=== PATIENT | male | born 1965 | race Caucasian/White ===

== ENCOUNTER 2019-06-27 10:02 | Emergency (ER) | payer OTHER ==
[2019-06-27 10:22] VITALS: BMI 39.1
[2019-06-27] MEDS ORDERED: ALBUTEROL SO4 2.5/IPRATROPIUM 0.5 INH SOL 3 ML VIAL.NEB. NEB ONE ×2 (10:39→10:40)
[2019-06-27] MEDS ORDERED: ACETAMINOPHEN 500 MG TABLET (FP) PO ONE (10:39)
[2019-06-27] MEDS ORDERED: ACETAMINOPHEN 500 MG TABLET (FP) ONE (10:40)
[2019-06-27] MEDS ORDERED: guaiFENesin 200 MG/10 ML 10 ML UNIT-DOSE CUPS PO ONE (10:42)
[2019-06-27] MEDS ORDERED: guaiFENesin/D-METHORPHAN HB 10 ML UNIT-DOSE CUPS ONE (10:56)
[2019-06-27] MEDS ORDERED: guaiFENesin/D-METHORPHAN HB 10 ML UNIT-DOSE CUPS PO ONE (11:07)
--- NOTE | 2019-06-27 11:10 | PDOC ---
History of Present Illness - General Chief Complaint: Respiratory Stated Complaint: COUGH,CONGESTION,CHEST PAIN Time Seen by Provider: 06/27/19 10:09 - History of Present Illness Initial Comments: 06/27/19 11:05 53yo male with no pmhx presents with his for eval of cough, congestion, fever x 2 days. States his symptoms started 2 days ago- rhinorrhea, sore throat , coughing- productive green sputum. Pt states he was taking robitussin yesterday and tylenol yesterday which made him feel better. States overnight he was awake and coughing all night-states cp when he coughs and bringing up green phlegm. Has not taken any meds since yesterday at 4pm. Pt states son with similar symptoms at home which lasted 4 days but he is improving. Pt did not get the flu vaccine. Pt denies abd pain, n/v/d. No dysuria. No other complaints. Pmhx: denies Pxhx: appy all: nkda Past History - Past Medical History Allergies/Adverse Reactions: Allergies Allergy/AdvReac Type Severity Reaction Status Date / Time No Known Allergies Allergy Verified 06/27/19 10:12 Home Medications: Ambulatory Orders Albuterol Sulfate Inhaler - [Ventolin HFA Inhaler -] 1 - 2 inh PO QID PRN #1 inhaler 06/27/19 Guaifenesin 200 mg PO Q4H PRN #300 ml 06/27/19 Inhaler, Assist Devices [Space Chamber Plus] 1 each MC Q4H PRN #1 spacer COPD: No - Surgical History Appendectomy: Yes - Psycho Social/Smoking Cessation Hx Smoking Status: No Smoking History: Never smoked Number of Cigarettes Smoked Daily: 0 Hx Alcohol Use: No Drug/Substance Use Hx: No Review of Systems - Review of Systems Able to Perform ROS?: Yes Is the patient limited [place]ib[place]ian proficient: No Constitutional: Yes: Fever. No: Chills HEENTM: Yes: Nose Congestion, Throat Pain Respiratory: Yes: Cough, Productive cough. No: Wheezing Cardiac (ROS): Yes: Chest Pain (only with the cough) ABD/GI: No: Diarrhea, Nausea, Vomiting, Abdominal cramping : No: Burning Musculoskeletal: No: Back Pain, Neck Pain Integumentary: No: Rash Neurological: No: Headache, Numbness, Paresthesia, Tingling, Tremors, Weakness All Other Systems: Reviewed and Negative *Physical Exam - Vital Signs Last Vital Signs Temp Pulse Resp BP Pulse Ox 100 F H 83 19 111/77 97 06/27/19 10:09 06/27/19 10:09 06/27/19 10:09 06/27/19 10:09 06/27/19 10:09 - Physical Exam General Appearance: Yes: Nourished, Appropriately Dressed. No: Apparent Distress HEENT: positive: EOMI, GIOVANI, TMs Normal, Nasal Congestion, Other (post nasal gtt ) Neck: positive: Supple. negative: Tender, Rigidity Respiratory/Chest: positive: Lungs Clear, Normal Breath Sounds. negative: Respiratory Distress, Rhonchi, Wheezing Cardiovascular: positive: Regular Rhythm, Regular Rate, S1, S2. negative: Edema Musculoskeletal: positive: Normal Inspection Extremity: positive: Normal Capillary Refill, Normal Range of Motion, Other ( ambulatory in the ER). negative: Calf Tenderness Integumentary: positive: Normal Color, Dry, Warm Neurologic: positive: Fully Oriented, Alert, Normal Mood/Affect, Normal Response Heart Score/ECG Review - ECG Intrepretation Comment:: 06/27/19 11:10 sinus at 80, nl axis, nl interval, no acute st/t wave findings, t wave flattening inferior leads only ED Treatment Course - RADIOLOGY Radiology Studies Ordered: Category Date Time Status CHEST PA & LAT [RAD] Stat Radiology 06/27/19 10:39 Ordered - Medications Given in the ED: ED Medications Discontinued Medications Generic Name Dose Route Start Last Admin Trade Name Freq PRN Reason Stop Dose Admin Acetaminophen 1,000 mg 06/27/19 10:39 06/27/19 10:53 Tylenol - PO 06/27/19 10:40 1,000 mg ONCE ONE Administration Albuterol/Ipratropium 1 amp 06/27/19 10:39 06/27/19 10:53 Duoneb - NEB 06/27/19 10:40 1 amp ONCE ONE Administration Medical Decision Making - Medical Decision Making 06/27/19 11:09 a/p: 53yo male with sore throat, nasal congestion, cough-productive green sputum -son with similar symptoms -last po meds were yesterday -tolerating po -suspect URI vs flu -will send for xray to r/o pna, though low suspicion given clear lungs -will give tylneol, robitussin, albuterol -will flu swab -pt is nontoxic in appearance -will monitor and reassess 06/27/19 11:27 cxr clear 06/27/19 12:13 pt feeling better repeat lung exam cta discussed meds at home discussed tylenol and motrin flu neg discussed po intake and need to stay well hydrated discussed all reasons to return to the ED and need for follow up with PMD answered all questions stable for dc to home Discharge - Discharge Information Problems reviewed: Yes Clinical Impression/Diagnosis: URI (upper respiratory infection) Condition: Stable Disposition: HOME - Admission No - Additional Discharge Information Prescriptions: Albuterol Sulfate Inhaler - [Ventolin HFA Inhaler -] 1 - 2 inh PO QID PRN #1 inhaler PRN Reason: Cough Guaifenesin 200 mg PO Q4H PRN #300 ml PRN Reason: Cough Inhaler, Assist Devices [Space Chamber Plus] 1 each MC Q4H PRN #1 spacer PRN Reason: Cough - Follow up/Referral Referrals: Osmar Rodriguez MD [Staff Physician] - - Patient Discharge Instructions Patient Printed Discharge Instructions: DI for Viral Upper Respiratory Infection -- Adult Additional Instructions: Please take all medications as prescribed. Please take tylenol or motrin as needed for the fever. Please make an appointment to see your PMD on saturday as discussed. Please drink plenty of fluids. Please return to the ED with any further concerns or complaints. - Post Discharge Activity
[2019-06-27 12:21] VITALS: BP 110/74; PULSE 86; TEMP 99.1
--- NOTE | 2019-06-28 15:16 | EKG ---
Test Reason : Blood Pressure : / mmHG Vent. Rate : 080 BPM Atrial Rate : 080 BPM P-R Int : 122 ms QRS Dur : 088 ms QT Int : 354 ms P-R-T Axes : 000 042 007 degrees QTc Int : 408 ms NORMAL SINUS RHYTHM NONSPECIFIC T WAVE ABNORMALITY ABNORMAL ECG NO PREVIOUS ECGS AVAILABLE Confirmed by MD SOPHIA, ARDEN ([id number]) on 06/28/2019 3:15:31 PM Referred By: RAMA WILSON Confirmed By:ARDEN CORTES MD
== END 2019-06-27 12:25 | disposition home or self-care (01) ==
LOC: FER 10:02
PROC: 3E0F7GC Introduction of Other Therapeutic Substance into Respiratory Tract, Via Natural or Artificial Opening (ICD-10-PCS; principal; 2019-06-27)
DX: J06.9 Acute upper respiratory infection, unspecified (principal)
CPT/HCPCS: 71046-TC-FY; 87804; 93005; 99282-25

== ENCOUNTER 2019-08-09 15:48 | Inpatient (IN) | payer SELFPAY ==
[2019-08-09] MEDS ORDERED: SODIUM CHLORIDE 1,000 ML IV STA ×2 (15:50→18:22)
[2019-08-09] MEDS ORDERED: ONDANSETRON 4 MG/2 ML VIAL IVPB ONE (15:51)
[2019-08-09] MEDS ORDERED: ONDANSETRON 4 MG/2 ML VIAL ONE (15:57)
[2019-08-09] MEDS ORDERED: morphine CARPU-JECT 4 MG/1 ML DISP.SYRIN IVPUSH ONE ×2 (16:29→18:23)
[2019-08-09] MEDS ORDERED: PANTOPRAZOLE SODIUM 40 MG in SODIUM CHLORIDE 100 ML IVPB ONE (16:29)
[2019-08-09 16:30] LABS: ALBUMIN 4.2 g/dl (3.4-5.0); BASO % 0.6 % (0-2.0); BILIRUBIN,TOTAL 3.5 mg/dl (0.2-1); CALCIUM 9.5 mg/dl (8.5-10); EOS % 1.4 % (0-4.5); HEMATOCRIT 47.4 % (35.4-49); LYMPH % 14.5 % (8-40); MCH 29.1 pg (25.7-33.7); MCHC 33.7 g/dl (32.0-35.9); MEAN CELL VOLUME 86.4 fl (80-96); MONO % 5.1 % (3.8-10.2); NEUT % 78.4 % (42.8-82.8); PLATELET COUNT 293 K/MM3 (134-434); POTASSIUM 3.9 mmol/L (3.5-5.1); RBC 5.49 M/mm3 (4.00-5.60); RDW 12.5 % (11.9-15.9); TOT PROT 7.7 g/dl (6.4-8.2)
[2019-08-09] MEDS ORDERED: morphine SULFATE 4 MG/ML VIAL ONE ×2 (16:34→18:32)
[2019-08-09] MEDS ORDERED: PANTOPRAZOLE SODIUM 40 MG VIAL ONE (16:34)
--- NOTE | 2019-08-09 18:27 | PDOC ---
Documentation entered by Maribell Becerril SCRIBE, acting as scribe for Uday Felipe MD. Uday Mabry MD: This documentation has been prepared by the Jone hyatt Nirvannie, SCRIBE, under my direction and personally reviewed by me in its entirety. I confirm that the documentation accurately reflects all work, treatment, procedures, and medical decision making performed by me. History of Present Illness - General Chief Complaint: Nausea Stated Complaint: ABDOMINAL PAIN Time Seen by Provider: 08/09/19 15:49 History Source: Patient Exam Limitations: No Limitations - History of Present Illness Initial Comments: 08/09/19 16:46 The patient is a 53 year old male, with no significant past medical history, who presents to the emergency department with 2 days of epigastric abdominal pain and nausea. As per patient, shortly after eating a large meal yesterday. Patient notes the pain to worsen with touch and endorses several episodes of retching without any vomiting. His last bowel movement was yesterday and normal in nature. He denies any recent fevers, chills, headache or dizziness. He denies any recent diarrhea or constipation. He denies any recent chest pain or shortness of breath. He denies any recent dysuria, frequency, urgency or hematuria. Allergies: NKDA Past surgical history: Appendectomy Social History: Nonsmoker. Denies excessive EtOH use or recreational drug use. Familial History: Maternal: DM and GERD Primary Care Physician: Dr. Schmid Past History - Past Medical History Allergies/Adverse Reactions: Allergies Allergy/AdvReac Type Severity Reaction Status Date / Time No Known Allergies Allergy Verified 08/09/19 15:53 Home Medications: Ambulatory Orders Bismuth Subsalicylate [Pepto-Bismol -] 524 mg PO ONCE 08/09/19 COPD: No - Surgical History Appendectomy: Yes - Psycho Social/Smoking Cessation Hx Smoking Status: No Smoking History: Never smoked Number of Cigarettes Smoked Daily: 0 Hx Alcohol Use: No Drug/Substance Use Hx: No Review of Systems - Review of Systems Able to Perform ROS?: Yes Comments:: 08/09/19 16:46 CONSTITUTIONAL: Absent: fever, no chills, no fatigue EYES: Absent: visual changes ENT: Absent: ear pain, no sore throat CARDIOVASCULAR: Absent: chest pain, no palpitations RESPIRATORY: Absent: cough, no SOB GI: Present: Abdominal pain, nausea. Absent: no vomiting, no constipation, no diarrhea GENITOURINARY: Absent: dysuria, no frequency, no hematuria MUSKULOSKELETAL: Absent: back pain, no arthralgia, no myalgia SKIN: Absent: rash NEURO: Absent: headache All Other Systems: Reviewed and Negative *Physical Exam - Vital Signs Last Vital Signs Temp Pulse Resp BP Pulse Ox 98.0 F 106 H 22 H 134/80 100 08/09/19 15:49 08/09/19 15:49 08/09/19 15:49 08/09/19 15:49 08/09/19 15:49 - Physical Exam 08/09/19 17:32 GENERAL: Well developed, well nourished. Awake and alert. +Moderate distress secondary to epigastric pain and nausea. HEENT: Normocephalic, atraumatic. PERRLA, EOMI. No conjunctival pallor. Sclera are non- icteric. Moist mucous membranes. Oropharynx is clear. NECK: Supple. Full ROM. No JVD. Carotid pulses 2+ and symmetric, without bruits. No thyromegaly. No lymphadenopathy. CARDIOVASCULAR: Regular rate and rhythm. No murmurs, rubs, or gallops. Distal pulses are 2+ and symmetric. PULMONARY: No evidence of respiratory distress. Lungs clear to auscultation bilaterally. No wheezing, rales or rhonchi. ABDOMINAL: +Protuberant. Soft. Non-distended. Mild to moderate epigastric tenderness to deep palpation. No rebound or guarding. No organomegaly. Normoactive bowel sounds. No mid-abominal, lower, or rib tenderness. Negative Cage's Sign. : No hernias. No testicular masses or swelling. MUSCULOSKELETAL Normal range of motion at all joints. No bony deformities or tenderness. No CVA tenderness. EXTREMITIES: No cyanosis. No clubbing. No edema. No calf tenderness. SKIN: Warm and dry. Normal capillary refill. No rashes. No jaundice. NEUROLOGICAL: Alert, awake, appropriate. Cranial nerves 2-12 intact. No deficits to light touch and temperature in face, upper extremities and lower extremities. No motor deficits in the in face, upper extremities and lower extremities. Normoreflexic in the upper and lower extremities. Normal speech. Toes are down- going bilaterally. PSYCHIATRIC: Cooperative. Good eye contact. Appropriate mood and affect. ED Treatment Course - LABORATORY CBC & Chemistry Diagram: 08/09/19 16:05 08/09/19 16:05 - ADDITIONAL ORDERS Additional order review: Laboratory Results 08/09/19 08/09/19 16:05 16:05 Sodium 139 Potassium 3.9 Chloride 103 Carbon Dioxide 24 Anion Gap 12 BUN 12.0 Creatinine 1.0 Est GFR (CKD-EPI)AfAm 100.55 Est GFR (CKD-EPI)NonAf 86.76 Random Glucose 161 H Calcium 9.5 Total Bilirubin 3.5 H AST 570 H ALT 660 H Alkaline Phosphatase 118 H Total Protein 7.7 Albumin 4.2 Lipase > 36583 H 08/09/19 16:05 RBC 5.49 MCV 86.4 MCHC 33.7 RDW 12.5 MPV 9.0 Neutrophils % 78.4 Lymphocytes % 14.5 Monocytes % 5.1 Eosinophils % 1.4 Basophils % 0.6 - RADIOLOGY Radiology Studies Ordered: Category Date Time Status ABDOMEN FLAT & UPRIGHT [RAD] Stat Radiology 08/09/19 16:51 Completed ABDOMEN US -LIMITED [US] Stat Ultrasound 08/09/19 17:20 Ordered - Medications Given in the ED: ED Medications Discontinued Medications Generic Name Dose Route Start Last Admin Trade Name Freq PRN Reason Stop Dose Admin Sodium Chloride 1,000 mls @ 1,000 mls/hr 08/09/19 15:50 08/09/19 16:13 Normal Saline - IV 08/09/19 16:49 1,000 mls/hr ASDIR STA Administration Pantoprazole Sodium 40 mg/ 100 mls @ 200 mls/hr 08/09/19 16:29 08/09/19 16:45 Sodium Chloride IVPB 08/09/19 16:58 200 mls/hr ONCE ONE Administration Morphine Sulfate 4 mg 08/09/19 16:29 08/09/19 16:40 Morphine Injection - IVPUSH 08/09/19 16:30 4 mg ONCE ONE Administration Ondansetron HCl 4 mg 08/09/19 15:51 08/09/19 16:14 Zofran Injection IVPB 08/09/19 15:52 4 mg ONCE ONE Administration Medical Decision Making - Medical Decision Making 08/09/19 18:14 White blood count 11.0. Blood sugar 161. Bilirubin 3.5. AST and ALT 570 and 660 respectively alkaline phosphatase 118. Lipase greater than 30,000 Attempt to pass NG tube was not tolerated by the patient. He refused to cooperate, unwilling to allow the tube to remain in place Ultrasound is pending. 08/09/19 18:25 Diagnosis: Acute pancreatitis, etiology uncertain Admit to [facility] [place], Christina Neri contacted, arranged admission to Patient clinically and hemodynamically stable. Receiving intravenous fluids. N.p.o. Pain controlled with morphine. Awaiting ambulance transport. Discharge - Discharge Information Problems reviewed: Yes Clinical Impression/Diagnosis: Acute pancreatitis Qualifiers: Pancreatitis type: unspecified pancreatitis type Acute pancreatitis complication: unspecified Qualified Code(s): K85.90 - Acute pancreatitis without necrosis or infection, unspecified Condition: Good - Admission Yes - Follow up/Referral Referrals: Osmar Rodriguez MD [Primary Care Provider] - - Patient Discharge Instructions - Post Discharge Activity
[2019-08-09] MEDS ORDERED: BISMUTH SUBSALICYLATE 524 MG/30 ML UD PO ONE (22:30)
[2019-08-09] MEDS: morphine SULFATE 4 MG/ML VIAL IVPUSH PRN (22:43)
[2019-08-09] MEDS: SODIUM CHLORIDE 1,000 ML IV SCH (22:45)
--- NOTE | 2019-08-09 22:51 | HP ---
CHIEF COMPLAINT: Epigastric pain with nausea PCP: Dr. Rodriguez HISTORY OF PRESENT ILLNESS: This is a 53 year old male with no significant PMH. He presented to the ER at [facility] with complaints of epigastric abdominal pain associated with nausea since yesterday. The pain began around 2-4PM a day before presenting to the ER. He had cereal for breakfast, and was eating fried chicken for lunch. Shortly afterwards, he experienced sudden onset epigastric pain associated with nausea. He attempted to force himself to vomit, but was only able to produce scant black liquid. The pain was constant, but intermittent in intensity, ranging between 7- 10/10 in intensity, sharp in quality, non- radiating, aggravated by eating as well as pepto-bismol use, and alleviated by sitting upright. He denies fevers, chills, SOB, cough, chest pain, palpitations, confusion, visual changes, vomiting, diarrhea, constipation, dysuria, or hematuria. He has never experienced pain like this before. He denies any recent illnesses, or sick contacts. His last visit to a hospital was the ER at [facility], when he was experiencing SOB. He was found to have a URTI, and received Tylenol, Albuterol, and Robitussin and was discharged. He has never had a colonoscopy. He had an appenedectomy for acute appendicitis several years ago. ER course was notable for: (1) Abdomen US: Gallstones, fatty liver, no cholecystitis, no GB distension, AXR showed no free air (2) WBC 11k, afebrile (3) AST/ALT 570/660 Lipase >30k Recent Travel: denies PAST MEDICAL HISTORY: See HPI PAST SURGICAL HISTORY: Appendectomy several years ago Social History: Smoking: denies Alcohol: denies Drugs: denies Allergies - No Known Allergies Allergy (Verified 08/09/19 15:53) HOME MEDICATIONS: Home Medications Medication Instructions Recorded Bismuth Subsalicylate 524 mg PO ONCE 08/09/19 [Pepto-Bismol -] REVIEW OF SYSTEMS CONSTITUTIONAL: Absent: fever, chills, diaphoresis, generalized weakness, malaise, loss of appetite, weight change HEENT: Absent: rhinorrhea, nasal congestion, throat pain, throat swelling, difficulty swallowing, mouth swelling, ear pain, eye pain, visual changes CARDIOVASCULAR: Absent: chest pain, syncope, palpitations, irregular heart rate, lightheadedness , peripheral edema RESPIRATORY: Absent: cough, shortness of breath, dyspnea with exertion, orthopnea, wheezing, stridor, hemoptysis GASTROINTESTINAL: abdominal pain, nausea Absent: abdominal pain, abdominal distension, nausea, vomiting, diarrhea, constipation, melena, hematochezia GENITOURINARY: Absent: dysuria, frequency, urgency, hesitancy, hematuria, flank pain, genital pain MUSCULOSKELETAL: Absent: myalgia, arthralgia, joint swelling, back pain, neck pain SKIN: Absent: rash, itching, pallor HEMATOLOGIC/IMMUNOLOGIC: Absent: easy bleeding, easy bruising, lymphadenopathy, frequent infections ENDOCRINE: Absent: unexplained weight gain, unexplained weight loss, heat intolerance, cold intolerance NEUROLOGIC: Absent: headache, focal weakness or paresthesias, dizziness, unsteady gait, seizure, mental status changes, bladder or bowel incontinence PSYCHIATRIC: Absent: anxiety, depression, suicidal or homicidal ideation, hallucinations. PHYSICAL EXAMINATION Vital Signs - 24 hr 08/09/19 08/09/19 08/09/19 15:49 18:15 19:42 Temperature 98.0 F 98.1 F 98.1 F Pulse Rate 106 H 68 Pulse Rate [ 66 Left Radial] Respiratory 22 H 18 18 Rate Blood Pressure 134/80 112/71 Blood Pressure 110/70 [Right Arm] O2 Sat by Pulse 100 96 Oximetry (%) 08/09/19 08/09/19 20:12 21:00 Temperature 98.1 F 98.2 F Pulse Rate 68 71 Pulse Rate [ Left Radial] Respiratory 18 20 Rate Blood Pressure 112/71 140/82 Blood Pressure [Right Arm] O2 Sat by Pulse 96 Oximetry (%) GENERAL: Awake, alert, and fully oriented, in no acute distress. HEAD: Normal with no signs of trauma. EYES: Pupils equal, round and reactive to light, extraocular movements intact, sclera anicteric, conjunctiva clear. No lid lag. EARS, NOSE, THROAT: Ears normal, nares patent, oropharynx clear without exudates. Moist mucous membranes. NECK: Normal range of motion, supple without lymphadenopathy, JVD, or masses. LUNGS: Breath sounds equal, clear to auscultation bilaterally. No wheezes, and no crackles. No accessory muscle use. HEART: Regular rate and rhythm, normal S1 and S2 without murmur, rub or gallop. ABDOMEN: Scar from appendectomy in Rt lower quadrant, no erythema or tenderness at site, epigastric tenderness, no rebound tenderness MUSCULOSKELETAL: Normal range of motion at all joints. No bony deformities or tenderness. No CVA tenderness. UPPER EXTREMITIES: 2+ pulses, warm, well-perfused. No cyanosis. No clubbing. No peripheral edema. LOWER EXTREMITIES: 2+ pulses, warm, well-perfused. No calf tenderness. No peripheral edema. NEUROLOGICAL: Cranial nerves II-XII intact. Normal speech PSYCHIATRIC: Cooperative. Good eye contact. Appropriate mood and affect. SKIN: Warm, dry, normal turgor, no rashes or lesions noted, normal capillary refill. Laboratory Results - last 24 hr 08/09/19 08/09/19 08/09/19 16:05 16:05 16:05 WBC 11.0 H RBC 5.49 Hgb 16.0 Hct 47.4 MCV 86.4 MCH 29.1 MCHC 33.7 RDW 12.5 Plt Count 293 MPV 9.0 Absolute Neuts (auto) 8.5 Neutrophils % 78.4 Lymphocytes % 14.5 Monocytes % 5.1 Eosinophils % 1.4 Basophils % 0.6 Sodium 139 Potassium 3.9 Chloride 103 Carbon Dioxide 24 Anion Gap 12 BUN 12.0 Creatinine 1.0 Est GFR (CKD-EPI)AfAm 100.55 Est GFR (CKD-EPI)NonAf 86.76 Random Glucose 161 H Calcium 9.5 Total Bilirubin 3.5 H AST 570 H ALT 660 H Alkaline Phosphatase 118 H Total Protein 7.7 Albumin 4.2 Lipase > 70344 H Urine Color Urine Appearance Urine pH Urine Protein Urine Glucose (UA) Urine Ketones Urine Blood Urine Nitrite Urine Bilirubin Urine Urobilinogen Ur Leukocyte Esterase Urine RBC Urine WBC Urine Bacteria 08/09/19 20:00 WBC RBC Hgb Hct MCV MCH MCHC RDW Plt Count MPV Absolute Neuts (auto) Neutrophils % Lymphocytes % Monocytes % Eosinophils % Basophils % Sodium Potassium Chloride Carbon Dioxide Anion Gap BUN Creatinine Est GFR (CKD-EPI)AfAm Est GFR (CKD-EPI)NonAf Random Glucose Calcium Total Bilirubin AST ALT Alkaline Phosphatase Total Protein Albumin Lipase Urine Color Yellow Urine Appearance Clear Urine pH 5.0 Urine Protein Negative Urine Glucose (UA) Negative Urine Ketones Trace Urine Blood Trace-intact Urine Nitrite Negative Urine Bilirubin 2+ H Urine Urobilinogen 1.0 Ur Leukocyte Esterase Negative Urine RBC 2-5 Urine WBC 0-2 Urine Bacteria Few ASSESSMENT/PLAN: 53 year old male with no significant PMH. He presented to the ER at [place] with complaints of epigastric abdominal pain associated with nausea since yesterday. Found to have gallstones on US and Lipase of >30k, admitted for management of acute pancreatitis #Acute pancreatitis - Meets 2/3 criteria for acute pancreatitis: 1)epigastric pain (present), 2) Lipase >3x normal limit (present), 3)Direct radiographic evidence of pancreatitis - Lipase >30k, repeat ordered for AM - Abdomen US: Gallstones, fatty liver, no cholecystitis, no GB distension, AXR showed no free air - No signs of organ failure or systemic complications - Likely 2/2 cholelithiasis, RUQ showed gallstones without GB inflammation or distension - If condition worsens, would order CT AP to check for presence of pancreatic/ extrapancreatic necrosis and/or local complications - TG level,EtOH level ordered to r/o other possible causes of pancreatitis - Will keep NPO and hydrate aggressively (N/S @200) - IV Morphine and Zofran PRN ordered for symptomatic management - GI consulted and MRCP ordered for management of cholelithiasis - Cholecystectomy should be performed after resolution of pancreatitis, no cholecystectomy after pancreatitis is associated with a 25-30% percent risk of recurrent acute pancreatitis, cholecystitis, or cholangitis within 6-18 weeks #Transaminitis - AST 570, ALT 660 - Likely 2/2 to cholelithiasis, T Bili 3.5, ALP 118 - Fatty liver on US - Tylenol level ordered - Hep A,B,C tests ordered #Leukocytosis - WBC 11k, likely reactive 2/2 pancreatitis - No abx currently indicated - No other signs of sepsis, will continue to monitor #FEN - L/R @ 200 started - NPO #DVT - Heparin 5000 SQ TID Visit type - Emergency Visit Emergency Visit: Yes ED Registration Date: 08/09/19 Care time: The patient presented to the Emergency Department on the above date and was hospitalized for further evaluation of their emergent condition. - New Patient This patient is new to me today: Yes Date on this admission: 08/11/19 - Critical Care Critical Care patient: No ATTENDING PHYSICIAN STATEMENT I saw and evaluated the patient. I reviewed the resident's note and discussed the case with the resident. I agree with the resident's findings and plan as documented. SUBJECTIVE: OBJECTIVE: ASSESSMENT AND PLAN:
[2019-08-09 23:21] VITALS: BMI 39.2
--- NOTE | 2019-08-10 01:08 | PN ---
Teaching Attending Note Name of Resident: Nicolas Rahman ATTENDING PHYSICIAN STATEMENT I saw and evaluated the patient. I reviewed the resident's note and discussed the case with the resident. I agree with the resident's findings and plan as documented. SUBJECTIVE: 53-year-old male previously healthy, not taking any medications at home complained of 1 day of severe epigastric pain which started after eating some fried chicken, associated with several episodes of nonbloody, nonbilious vomiting. Patient is transferred from [facility] to [place] for management of acute pancreatitis. OBJECTIVE: Last Vital Signs Temp Pulse Resp BP Pulse Ox 98.2 F 71 20 138/76 96 08/09/19 21:00 08/09/19 22:35 08/09/19 22:35 08/09/19 22:35 08/09/19 21:00 GENERAL: Well developed, Morbidly obese, nontoxic-appearing, not in acute distress HEENT: Normocephalic, atraumatic. PERRLA, EOMI. No conjunctival pallor. Sclera are non- icteric. Moist mucous membranes. Oropharynx is clear. NECK: Supple. Full ROM. No JVD. Carotid pulses 2+ and symmetric, without bruits. No thyromegaly. No lymphadenopathy. CARDIOVASCULAR: Regular rate and rhythm. No murmurs, rubs, or gallops. Distal pulses are 2+ and symmetric. PULMONARY: No evidence of respiratory distress. Lungs clear to auscultation bilaterally. No wheezing, rales or rhonchi. ABDOMINAL: Soft. Non-tender. Non-distended. No rebound or guarding. No organomegaly. Normoactive bowel sounds. MUSCULOSKELETAL Normal range of motion at all joints. No bony deformities or tenderness. No CVA tenderness. EXTREMITIES: No cyanosis. No clubbing. No edema. No calf tenderness. SKIN: Warm and dry. Normal capillary refill. No rashes. No jaundice. NEUROLOGICAL: Alert, awake, appropriate. PSYCHIATRIC: Cooperative. Good eye contact. Appropriate mood and affect. Abnormal Lab Results 08/09/19 08/09/19 08/09/19 16:05 16:05 16:05 WBC 11.0 H Random Glucose 161 H Total Bilirubin 3.5 H AST 570 H ALT 660 H Alkaline Phosphatase 118 H Lipase > 98538 H Urine Bilirubin 08/09/19 20:00 WBC Random Glucose Total Bilirubin AST ALT Alkaline Phosphatase Lipase Urine Bilirubin 2+ H Imaging studies reviewed Ultrasound of abdomen reviewed. [id number] cm with parenchymal heterogenicity and increased density consistent with hepatic steatosis, gallbladder shows small mobile gallstones with negative sonographic Cage sign. Common bile duct dimension 5.6 mm. Normal appearance of portal vein. No signs of cholecystitis sonographically. ASSESSMENT AND PLAN: 53-year-old male, morbidly obese with acute pancreatitis, high lipase likely secondary to gallstone pancreatitis. Suspect possible blockage of biliary ducts , ampulla of Vater. Should rule out pancreatitis secondary to triglyceridemia. No history of EtOH abuse or illicit or prescription drug use. History of abdominal pain after eating fatty food is consistent with diagnosis. Suspect leukocytosis is leukemoid reaction. Mixed transaminitis picture, may be secondary to cholestasis versus Atkins as patient is morbidly obese and has a fatty liver on liver ultrasound. Rule out other causes of hepatic injury such as viral hepatitis, EtOH, Tylenol. Admit to [facility] N[facility] Send lipid panel EtOH level Urine drug screen MRCP Aggressive IV fluid hydration Pain control with morphine IV pushes Zofran IV as needed if nausea or vomiting Hepatitis A, B, C serologies Tylenol level GI consult for ERCP DVT prophylaxis with heparin subcutaneously.
[2019-08-10] MEDS ORDERED: ONDANSETRON 4 MG/2 ML VIAL IVPUSH PRN (02:08)
[2019-08-10 02:18] LABS: TRIGLYCERIDES 48 mg/dL (0-150)
[2019-08-10] MEDS: morphine SULFATE 4 MG/ML VIAL IVPUSH PRN ×2 (02:47→07:46)
[2019-08-10] MEDS: SODIUM CHLORIDE 1,000 ML IV SCH (03:44)
[2019-08-10] MEDS ORDERED: LACTATED RINGERS SOLUTION 1,000 ML/1,000 ML INFUS.BAG IV SCH ×2 (04:30→11:20)
[2019-08-10] MEDS: HEPARIN NA (PORCINE) 5,000 UNITS/ML 1ML VIAL SQ SCH ×3 (06:12→22:04)
[2019-08-10 08:28] LABS: ALBUMIN 3.1 g/dl (3.4-5.0); BILIRUBIN,DIRECT 0.6 mg/dL (0.0-0.2); BILIRUBIN,TOTAL 1.2 mg/dL (0.2-1); TOT PROT 6.6 g/dl (6.4-8.2)
[2019-08-10 08:33] LABS: AMYLASE 490 U/L (25-115); LIPASE 4277 U/L (73-393)
--- NOTE | 2019-08-10 09:18 | EKG ---
Test Reason : Blood Pressure : / mmHG Vent. Rate : 077 BPM Atrial Rate : 077 BPM P-R Int : 136 ms QRS Dur : 082 ms QT Int : 352 ms P-R-T Axes : 006 002 023 degrees QTc Int : 398 ms POOR DATA QUALITY, INTERPRETATION MAY BE ADVERSELY AFFECTED NORMAL SINUS RHYTHM LOW VOLTAGE QRS POSSIBLE INFERIOR INFARCT , AGE UNDETERMINED ABNORMAL ECG WHEN COMPARED WITH ECG OF 27-JUN-2019 11:09, BORDERLINE CRITERIA FOR INFERIOR INFARCT ARE NOW PRESENT Confirmed by Pam Yanes ([id number]) on 08/10/2019 9:18:17 AM Referred By: Confirmed By:Pam Yanes
[2019-08-10 09:39] LABS: COCAINE, UR NEGATIVE ng/ml (CUTOFF=300); METHADONE, UR NEGATIVE ng/ml (CUTOFF=300); PHENCYCLIDINE,URINE NEGATIVE ng/ml (CUTOFF=25); URINE AMPHETAMINES NEGATIVE ng/ml (CUTOFF=500); URINE BARBITURATES NEGATIVE ng/ml (CUTOFF=200); URINE BENZODIAZEPINES NEGATIVE ng/ml (CUTOFF=200)
[2019-08-10 09:43] LABS: OPIATES, URI POSITIVE ng/ml (CUTOFF=300)
[2019-08-10] MEDS ORDERED: HYDROmorphone HCL CARPU-JECT 2 MG/1 ML DISP.SYRIN IVPUSH SCH (11:15)
[2019-08-10] MEDS: PANTOPRAZOLE SODIUM 40 MG VIAL IVPUSH SCH (11:49)
[2019-08-10] MEDS: HYDROmorphone HCl 2 MG/ML VIAL IVPUSH PRN ×2 (11:49→20:16)
[2019-08-10] MEDS: LACTATED RINGERS SOLUTION 1,000 ML/1,000 ML INFUS.BAG IV SCH (15:09)
--- NOTE | 2019-08-10 15:15 | CON.GI ---
Consult Consult Specialty:: GI Referred by:: Medicine Reason for Consultation:: gallstone pancreatitis - History of Present Illness Chief Complaint: epigastric pain History of Present Illness: 53M no PMHx presenting for acute onset epigastric pain with nausea, no emesis, after eating fried chicken on Saturday. Reports dark urine saturday that has resolved. No light colored stool or icterus. Came to ED, noted to have lipase > 30K, likely acute pancreatitis. Denies ETOH use. US with gallstones in gallbladder, CBD 5.6mm. LFTs already downtrending rapidly. GI asked to consult regarding possible need for ERCP. - History Source History Provided By: Patient Limitations to Obtaining History: No Limitations - Past Surgical History Past Surgical History: Yes: Appendectomy - Alcohol/Substance Use Hx Alcohol Use: No - Smoking History Smoking history: Never smoked Aproximately how many cigarettes per day: 0 Home Medications - Allergies Allergies/Adverse Reactions: Allergies Allergy/AdvReac Type Severity Reaction Status Date / Time No Known Allergies Allergy Verified 08/09/19 15:53 - Home Medications Home Medications: Ambulatory Orders Bismuth Subsalicylate [Pepto-Bismol -] 524 mg PO ONCE 08/09/19 Family Medical History Family History: Unremarkable Review of Systems - Review of Systems Constitutional: denies: Chills, Fever Eyes: denies: No Symptoms HENT: denies: No Symptoms Neck: denies: No Symptoms Cardiovascular: denies: No Symptoms Respiratory: denies: No Symptoms Gastrointestinal: reports: Abdominal Pain, Nausea. denies: Vomiting Integumentary: reports: No Symptoms Neurological: reports: No Symptoms Endocrine: reports: No Symptoms Hematology/Lymphatic: reports: No Symptoms Psychiatric: reports: No Symptoms Physical Exam-GI Vital Signs: Vital Signs Temperature 98 F 08/10/19 09:00 Pulse Rate 68 08/10/19 09:00 Respiratory Rate 18 08/10/19 09:00 Blood Pressure 122/68 08/10/19 09:00 O2 Sat by Pulse Oximetry (%) 96 08/09/19 21:00 Constitutional: Yes: Well Nourished, No Distress Eyes: Yes: Conjunctiva Clear HENT: Yes: Atraumatic, Normocephalic Cardiovascular: Yes: Regular Rate and Rhythm Respiratory: Yes: CTA Bilaterally ...Palpate: Yes: Soft, Tenderness, Epigastium ...Percussion: No: Dullness, Tympanitic Musculoskeletal: Yes: WNL Edema: No Neurological: Yes: Alert, Oriented Psychiatric: Yes: Alert, Oriented Labs: CBC, BMP 08/09/19 16:05 08/09/19 16:05 Hepatic Panel Total Bilirubin 1.2 mg/dL (0.2-1) H 08/10/19 06:00 Direct Bilirubin 0.6 mg/dL (0.0-0.2) H 08/10/19 06:00 AST 233 U/L (15-37) H 08/10/19 06:00 ALT 519 U/L (13-61) H 08/10/19 06:00 Alkaline Phosphatase 126 U/L (45-117) H 08/10/19 06:00 Albumin 3.1 g/dl (3.4-5.0) L 08/10/19 06:00 Imaging - Results Ultrasound: Report Reviewed Assessment/Plan Likely gallstone pancreatitis LFT improving - may have passed stone Can watch LFTs for now, if continue to downtrend rapidly, can likely defer MRCP - if plateau or begin to rise, then can consider obtaining Can likely give trial of clear liquids for now Surgical consult for cholecystectomy when acute pancreatitis resolves
--- NOTE | 2019-08-10 18:14 | PN ---
Physical Exam: SUBJECTIVE: Patient seen and examined. Pt reports mild- moderate pain. Tolerating pain well due to morphine. Asymptomatic and afebrile. Denies f/c/n/v/ d/sob/cp. OBJECTIVE: Vital Signs Period Temp Pulse Resp BP Sys/Kerr Pulse Ox Last 24 Hr 98 F-98.3 F 61-77 18-20 110-143/52-82 96-96 GENERAL: The patient is awake, alert, and fully oriented, in no acute distress. EYES: PERRL, extraocular movements intact, sclera anicteric, conjunctiva clear. No ptosis. ENT: Ears normal, nares patent, oropharynx clear without exudates, NECK: Trachea midline, full range of motion, supple. LUNGS: Breath sounds equal, clear to auscultation bilaterally, no wheezes, no crackles, HEART: Regular rate and rhythm, S1, S2 without murmur, rub or gallop. ABDOMEN: Soft, tender to deep palpation in the LUQ and epigastric region, nondistended, normoactive bowel sounds, no guarding, EXTREMITIES: 2+ pulses, warm, well-perfused, no edema. NEUROLOGICAL: Cranial nerves II through XII grossly intact. Normal speech, gait not observed. PSYCH: Normal mood, normal affect. SKIN: Warm, dry, normal turgor, no rashes or lesions noted Laboratory Results - last 24 hr 08/09/19 08/10/19 08/10/19 20:00 01:13 06:00 Total Bilirubin 1.2 H Direct Bilirubin 0.6 H AST 233 H ALT 519 H Alkaline Phosphatase 126 H Total Protein 6.6 Albumin 3.1 L Triglycerides 48 56 Cholesterol 128 Total LDL Cholesterol 71 HDL Cholesterol 42 Total Amylase Lipase Urine Color Yellow Urine Appearance Clear Urine pH 5.0 Urine Protein Negative Urine Glucose (UA) Negative Urine Ketones Trace Urine Blood Trace-intact Urine Nitrite Negative Urine Bilirubin 2+ H Urine Urobilinogen 1.0 Ur Leukocyte Esterase Negative Urine RBC 2-5 Urine WBC 0-2 Urine Bacteria Few Opiates Screen Methadone Screen Acetaminophen Barbiturate Screen Phencyclidine Screen Ur Amphetamines Screen MDMA (Ecstasy) Screen Benzodiazepines Screen Cocaine Screen U Marijuana (THC) Screen Alcohol, Quantitative < 3 08/10/19 08/10/19 08/10/19 06:00 06:00 06:30 Total Bilirubin Direct Bilirubin AST ALT Alkaline Phosphatase Total Protein Albumin Triglycerides Cholesterol Total LDL Cholesterol HDL Cholesterol Total Amylase 490 H Lipase 4277 H Urine Color Urine Appearance Urine pH Urine Protein Urine Glucose (UA) Urine Ketones Urine Blood Urine Nitrite Urine Bilirubin Urine Urobilinogen Ur Leukocyte Esterase Urine RBC Urine WBC Urine Bacteria Opiates Screen Positive A* Methadone Screen Negative Acetaminophen <2.0 Barbiturate Screen Negative Phencyclidine Screen Negative Ur Amphetamines Screen Negative MDMA (Ecstasy) Screen Negative Benzodiazepines Screen Negative Cocaine Screen Negative U Marijuana (THC) Screen Negative Alcohol, Quantitative Active Medications Generic Name Dose Route Start Last Admin Trade Name Freq PRN Reason Stop Dose Admin Heparin Sodium (Porcine) 5,000 unit 08/10/19 06:00 08/10/19 14:12 Heparin - SQ 5,000 unit TID DMITRY Administration Hydromorphone HCl 1 mg 08/10/19 11:32 08/10/19 11:49 Dilaudid Vial - IVPUSH 1 mg Q4H PRN Administration PAIN LEVEL 7 - 10 Lactated Ringer's 1,000 ml in 1,000 mls @ 100 mls/hr 08/10/19 14:54 08/10/19 15:09 Lactated Ringers Solution IV 100 mls/hr ASDIR DMITRY Administration Ondansetron HCl 4 mg 08/10/19 02:08 Zofran Injection IVPUSH Q4H PRN NAUSEA AND/OR VOMITING Pantoprazole Sodium 40 mg 08/10/19 11:30 08/10/19 11:49 Protonix Iv IVPUSH 40 mg DAILY DMITRY Administration ASSESSMENT/PLAN: 53 year old male with no PMH, presented to the ER at [place] with complaints of epigastric abdominal pain associated with nausea since yesterday w / gallstones on US and Lipase of >30k, admitted for management of acute pancreatitis #Acute pancreatitis Meets 2/3 criteria for acute pancreatitis: 1)epigastric pain (present), 2) Lipase >3x normal limit (present), 3)Direct radiographic evidence of pancreatitis Lipase trending down- 4277 Abdomen US: Gallstones, fatty liver, no cholecystitis, no GB distension, AXR showed no free air No signs of organ failure or systemic complications MRCP ordered- pending read NPO IVF at 100 IV dilaudid and Zofran PRN ordered for symptomatic management GI consulted IV protonix 40 daily #Transaminitis AST and ALT trending down Fatty liver on US Hep A,B,C tests ordered #Leukocytosis WBC 11k, likely reactive 2/2 pancreatitis No abx currently indicated No other signs of sepsis, will continue to monitor #FEN L/R @ 100 started Clear liquids after mrcp monitor lytes #DVT Heparin 5000 SQ TID Dispo: f/u MRCP, down trending lfts, stone likely passed, consider ERCP if gallstones present, f/u GI, likely need elective missy after resolution of AP Visit type - Emergency Visit Emergency Visit: Yes ED Registration Date: 08/09/19 Care time: The patient presented to the Emergency Department on the above date and was hospitalized for further evaluation of their emergent condition. - New Patient This patient is new to me today: Yes Date on this admission: 08/10/19 - Critical Care Critical Care patient: No - Discharge Referral Referred to [facility] No ATTENDING PHYSICIAN STATEMENT I saw and evaluated the patient. I reviewed the resident's note and discussed the case with the resident. I agree with the resident's findings and plan as documented. SUBJECTIVE: OBJECTIVE: ASSESSMENT AND PLAN:
--- NOTE | 2019-08-10 19:07 | PN ---
Teaching Attending Note Name of Resident: Gunner Up ATTENDING PHYSICIAN STATEMENT I saw and evaluated the patient. I reviewed the resident's note and discussed the case with the resident. I agree with the resident's findings and plan as documented. Seen and examined; please see resident note for further historical information. I personally verified all estevez historical information and exam findings. Personally interpreted all imaging and diagnostics and reviewed appropriate consults. I reviewed all labs and vital signs as per resident note and EMR as documented. I agree with the above assessment and plan unless supplemented by myself in the following. Patient seen by gastroenterology. States that we can defer the MRCP which was already obtained as of 8 AM so cannot be deferred. Likely passed a gallstone. Denies any alcohol, scorpion exposure, etc. etc. He will be monitored on the floor, can likely advance to clears tomorrow and continue to provide hydration with isotonic saline/LR. Monitor electrolytes. Providing pain control with Dilaudid. Not nauseous at the moment, will continue to monitor symptomatically. 10 item review of systems completed and is negative aside from as discussed in the subjective data in my own/the resident documentation. VS, labs, imaging reviewed NAD, AAO, resting comfortably in bed. RRR s1/2 no mgr Normal muscle tone, moves all 5 extremities with normal apparent strength Neck is supple, trachea midline, no lala LN Lungs CTAB with sym expansion Tender in the epigastric region with rebound ND +BS no lala organomegaly CN2-12 wnl; no FND NC AT EOMI PERRLA Normal mood, appropriate behavior, euthymic affect No skin breakdown or rashes noted Assessment and plan: Patient is a 53-year-old male presenting to the emergency room with abdominal pain likely secondary to gallstone pancreatitis. He is hemodynamically stable and afebrile. He is likely passed the gallstone. GI stated that MRCP can likely be deferred but was ready obtained. We will continue monitoring the patient on the floor. He is nontoxic-appearing Problems include: -Acute pancreatitis -Morbid obesity -Leukocytosis -Gallstones without associated cholecystitis Full code Providing improvement of symptoms, tolerating diet, can likely be discharged in 24 to 36 hours.
[2019-08-11] MEDS: HYDROmorphone HCl 2 MG/ML VIAL IVPUSH PRN (01:57)
[2019-08-11] MEDS: HEPARIN NA (PORCINE) 5,000 UNITS/ML 1ML VIAL SQ SCH ×3 (06:02→22:32)
[2019-08-11 06:57] LABS: BASO % 0.3 % (0-2.0); EOS % 1.5 % (0-4.5); HEMATOCRIT 38.5 % (35.4-49); HEMOGLOBIN 13.4 GM/dL (11.7-16.9); LYMPH % 18.8 % (8-40); MCH 29.7 pg (25.7-33.7); MCHC 34.7 g/dl (32.0-35.9); MEAN CELL VOLUME 85.6 fl (80-96); MEAN PLT VOLUME 9.3 fl (7.5-11.1); MONO % 7.1 % (3.8-10.2); NEUT % 72.3 % (42.8-82.8); PLATELET COUNT 233 K/MM3 (134-434); RDW 13.7 % (11.9-15.9); WHITE BLOOD COUNT 9.9 K/mm3 (4.0-10.0)
[2019-08-11 07:27] LABS: ALBUMIN 3.1 g/dl (3.4-5.0); BILIRUBIN,TOTAL 0.9 mg/dL (0.2-1); BLOOD UREA NITROGEN 13.3 mg/dL (7-18); CALCIUM 8.3 mg/dL (8.5-10.1); CREATININE 0.8 mg/dL (0.55-1.3); TOT PROT 6.5 g/dl (6.4-8.2)
[2019-08-11] MEDS: PANTOPRAZOLE SODIUM 40 MG VIAL IVPUSH SCH (10:36)
[2019-08-11] MEDS: LACTATED RINGERS SOLUTION 1,000 ML/1,000 ML INFUS.BAG IV SCH ×2 (16:28)
--- NOTE | 2019-08-11 17:10 | PN ---
Teaching Attending Note Name of Resident: Gunner Up ATTENDING PHYSICIAN STATEMENT I saw and evaluated the patient. I reviewed the resident's note and discussed the case with the resident. I agree with the resident's findings and plan as documented. SUBJECTIVE: Reports significant improvement in abdominal pain. No nausea/ vomiting. Tolerating clears. OBJECTIVE: Tmax 100.6, febrile. Hemodynamically Stable. Last Vital Signs Temp Pulse Resp BP Pulse Ox 97.9 F 80 18 139/70 97 08/11/19 14:00 08/11/19 14:00 08/11/19 08:00 08/11/19 14:00 08/11/19 09:00 HEENT - Atraumatic, Normocephalic. Heart - S1, S2 RRR Lungs - clear to auscultation Abdomen - High BMI. Mild epigastric tenderness. Extremities - no edema, no calf tenderness. Laboratory Results - last 24 hr 08/11/19 08/11/19 05:15 05:15 WBC 9.9 RBC 4.50 Hgb 13.4 Hct 38.5 MCV 85.6 MCH 29.7 MCHC 34.7 RDW 13.7 Plt Count 233 MPV 9.3 Absolute Neuts (auto) 7.1 Neutrophils % 72.3 Lymphocytes % 18.8 Monocytes % 7.1 Eosinophils % 1.5 Basophils % 0.3 Nucleated RBC % 0 Sodium 137 Potassium 4.0 Chloride 104 Carbon Dioxide 27 Anion Gap 6 L BUN 13.3 Creatinine 0.8 Est GFR (CKD-EPI)AfAm 119.88 Est GFR (CKD-EPI)NonAf 103.43 Random Glucose 107 H Calcium 8.3 L Total Bilirubin 0.9 AST 83 H ALT 334 H Alkaline Phosphatase 110 Total Protein 6.5 Albumin 3.1 L Lipase 1212 H Current Medications Generic Name Dose Route Start Last Admin Trade Name Freq PRN Reason Stop Dose Admin Heparin Sodium (Porcine) 5,000 unit 08/10/19 06:00 08/11/19 13:33 Heparin - SQ 5,000 unit TID DMITRY Administration Hydromorphone HCl 1 mg 08/10/19 11:32 08/11/19 01:57 Dilaudid Vial - IVPUSH 1 mg Q4H PRN Administration PAIN LEVEL 7 - 10 Lactated Ringer's 1,000 ml in 1,000 mls @ 100 mls/hr 08/10/19 14:54 08/11/19 16:28 Lactated Ringers Solution IV Not Given ASDIR DMITRY Ondansetron HCl 4 mg 08/10/19 02:08 08/11/19 02:06 Zofran Injection IVPUSH 4 mg Q4H PRN Administration NAUSEA AND/OR VOMITING Pantoprazole Sodium 40 mg 08/10/19 11:30 08/11/19 10:36 Protonix Iv IVPUSH 40 mg DAILY DMITRY Administration ASSESSMENT AND PLAN: 53 year old male with no significant PMH, presented with epigastric abdominal pain associated with nausea, found to have acute pancreatitis. 1. Acute Pancreatitis sec to Gallstones Clnically improving, tolerating clears. Lipase levels significantly improved. LFTs improving MRI - shows extensive pancreatitis with devika-pancreatic edema, no necrosis or cyst/abscess; cholelithiasis, no choledocholithiasis or CBD dilatation. GI following Continue IV hydration Advance diet to full liquids. DVT Px - Heparin SQ GI Px - PPI
--- NOTE | 2019-08-11 17:17 | PN ---
Physical Exam: SUBJECTIVE: Patient seen and examined. Pt reports mild- moderate pain. Tolerating pain well due to morphine. Asymptomatic and afebrile. Denies f/c/n/v/ d/sob/cp. OBJECTIVE: Vital Signs Period Temp Pulse Resp BP Sys/Kerr Pulse Ox Last 24 Hr 97.9 F-100.6 F 76-82 18-19 119-145/60-75 96-97 GENERAL: The patient is awake, alert, and fully oriented, in no acute distress. EYES: PERRL, extraocular movements intact, sclera anicteric, conjunctiva clear. No ptosis. ENT: Ears normal, nares patent, oropharynx clear without exudates, NECK: Trachea midline, full range of motion, supple. LUNGS: Breath sounds equal, clear to auscultation bilaterally, no wheezes, no crackles, HEART: Regular rate and rhythm, S1, S2 without murmur, rub or gallop. ABDOMEN: Soft, tender to deep palpation in the LUQ and epigastric region, nondistended, normoactive bowel sounds, no guarding, EXTREMITIES: 2+ pulses, warm, well-perfused, no edema. NEUROLOGICAL: Cranial nerves II through XII grossly intact. Normal speech, gait not observed. PSYCH: Normal mood, normal affect. SKIN: Warm, dry, normal turgor, no rashes or lesions noted Laboratory Results - last 24 hr 08/11/19 08/11/19 05:15 05:15 WBC 9.9 RBC 4.50 Hgb 13.4 Hct 38.5 MCV 85.6 MCH 29.7 MCHC 34.7 RDW 13.7 Plt Count 233 MPV 9.3 Absolute Neuts (auto) 7.1 Neutrophils % 72.3 Lymphocytes % 18.8 Monocytes % 7.1 Eosinophils % 1.5 Basophils % 0.3 Nucleated RBC % 0 Sodium 137 Potassium 4.0 Chloride 104 Carbon Dioxide 27 Anion Gap 6 L BUN 13.3 Creatinine 0.8 Est GFR (CKD-EPI)AfAm 119.88 Est GFR (CKD-EPI)NonAf 103.43 Random Glucose 107 H Calcium 8.3 L Total Bilirubin 0.9 AST 83 H ALT 334 H Alkaline Phosphatase 110 Total Protein 6.5 Albumin 3.1 L Lipase 1212 H Active Medications Generic Name Dose Route Start Last Admin Trade Name Freq PRN Reason Stop Dose Admin Heparin Sodium (Porcine) 5,000 unit 08/10/19 06:00 08/11/19 13:33 Heparin - SQ 5,000 unit TID DMITRY Administration Hydromorphone HCl 1 mg 08/10/19 11:32 08/11/19 01:57 Dilaudid Vial - IVPUSH 1 mg Q4H PRN Administration PAIN LEVEL 7 - 10 Lactated Ringer's 1,000 ml in 1,000 mls @ 100 mls/hr 08/10/19 14:54 08/11/19 16:28 Lactated Ringers Solution IV Not Given ASDIR DMITRY Ondansetron HCl 4 mg 08/10/19 02:08 08/11/19 02:06 Zofran Injection IVPUSH 4 mg Q4H PRN Administration NAUSEA AND/OR VOMITING Pantoprazole Sodium 40 mg 08/10/19 11:30 08/11/19 10:36 Protonix Iv IVPUSH 40 mg DAILY DMITRY Administration ASSESSMENT/PLAN: 53 year old male with no PMH, presented to the ER at [place] with complaints of epigastric abdominal pain associated with nausea since yesterday w / gallstones on US and Lipase of >30k, admitted for management of acute pancreatitis #Acute pancreatitis Lipase trending down Abdomen US: Gallstones, fatty liver, no cholecystitis, no GB distension, AXR showed no free air MRCP ordered- N gallstones visualized, diffuse pancreatic edema w/ extensive peripancreatic edema and fluid extending inferiorly along the retropertoneal planes and laterally surrounding the spleen. IVF at 100 IV dilaudid and Zofran PRN ordered for symptomatic management IV protonix 40 daily Supportive management #Transaminitis AST and ALT trending down Fatty liver on US Hep A,B,C tests ordered #FEN L/R @ 100 started Full liquid diet monitor lytes #DVT Heparin 5000 SQ TID Dispo: f/u GI, likely need elective missy after resolution of AP, likely d/c if pt improves and is tolerating food well Visit type - Emergency Visit Emergency Visit: Yes ED Registration Date: 08/09/19 Care time: The patient presented to the Emergency Department on the above date and was hospitalized for further evaluation of their emergent condition. - New Patient This patient is new to me today: Yes Date on this admission: 08/12/19 - Critical Care Critical Care patient: No - Discharge Referral Referred to [facility] No ATTENDING PHYSICIAN STATEMENT I saw and evaluated the patient. I reviewed the resident's note and discussed the case with the resident. I agree with the resident's findings and plan as documented. SUBJECTIVE: OBJECTIVE: ASSESSMENT AND PLAN:
--- NOTE | 2019-08-11 17:54 | PN.GI ---
GI Progress Note Subjective: States abdominal pain has improved MRI revealed gallstones, no choledocholithiasis and inflammatory changes consistent with pancreatitis. - Objective Vital Signs: Vital Signs Temperature 97.9 F 08/11/19 14:00 Pulse Rate 80 08/11/19 14:00 Respiratory Rate 18 08/11/19 08:00 Blood Pressure 139/70 08/11/19 14:00 O2 Sat by Pulse Oximetry (%) 97 08/11/19 09:00 Constitutional: Calm Eyes: No: Sclera Icterus Cardiovascular: Yes: Regular Rate and Rhythm. No: Murmur Respiratory: Yes: CTA Bilaterally Gastrointestinal Inspection: No: Distention ...Auscultate: Yes: Normoactive Bowel Sounds ...Palpate: Yes: Tenderness (Mild TTP mid abdomen). No: Guarding, Tenderness, Rebound ...Percussion: No: Tympanitic Edema: No (No LE edema) Neurological: Yes: Alert Labs: CBC, BMP 08/11/19 05:15 08/11/19 05:15 Problem List - Problems (1) Acute pancreatitis Assessment/Plan: Suspect passed CBD stone given the rapid improvement Advise: Continued supportive measures Surgical consultation. For suspected gallstone pancreatitis, generally would advise cholecystectomy prior to discharge when pancreatitis has resolved so as to avoid recurrent episodes, potential cholangitis. Code(s): K85.90 - ACUTE PANCREATITIS WITHOUT NECROSIS OR INFECTION, UNSP Qualifiers: Pancreatitis type: unspecified pancreatitis type Acute pancreatitis complication: unspecified Qualified Code(s): K85.90 - Acute pancreatitis without necrosis or infection, unspecified
[2019-08-12 02:11] LABS: FIBROSIS SCORE. 0.43 (0.00-0.21); HCV ALPHA 2 MACRO CHART 98 mg/dL (110-276); NECRO.INFLAM ACT.SCORE 0.96 (0.00-0.17); NECROINFLAM. ACTIVITY GRADE A3-Severe activity (.)
[2019-08-12] MEDS: HEPARIN NA (PORCINE) 5,000 UNITS/ML 1ML VIAL SQ SCH ×3 (06:55→21:19)
[2019-08-12 07:18] LABS: HEMOGLOBIN 13.2 GM/dL (11.7-16.9); MCH 29.4 pg (25.7-33.7); MCHC 34.7 g/dl (32.0-35.9); MEAN CELL VOLUME 84.6 fl (80-96); MEAN PLT VOLUME 8.6 fl (7.5-11.1); PLATELET COUNT 226 K/MM3 (134-434); RDW 13.3 % (11.9-15.9); WHITE BLOOD COUNT 8.2 K/mm3 (4.0-10.0)
[2019-08-12 07:40] LABS: BILIRUBIN,TOTAL 0.8 mg/dL (0.2-1); BLOOD UREA NITROGEN 9.3 mg/dL (7-18); CALCIUM 8.3 mg/dL (8.5-10.1); CREATININE 0.9 mg/dL (0.55-1.3); POTASSIUM 3.6 mmol/L (3.5-5.1); TOT PROT 6.7 g/dl (6.4-8.2)
[2019-08-12] MEDS: PANTOPRAZOLE SODIUM 40 MG VIAL IVPUSH SCH (09:47)
--- NOTE | 2019-08-12 14:36 | PN ---
Teaching Attending Note Name of Resident: Gunner Up ATTENDING PHYSICIAN STATEMENT I saw and evaluated the patient. I reviewed the resident's note and discussed the case with the resident. I agree with the resident's findings and plan as documented. SUBJECTIVE: Reports continued improvement in abdominal pain. No nausea/ vomiting. Tolerating full liquid diet. OBJECTIVE: Tmax 100.7 yesterday afternoon. Hemodynamically Stable. Last Vital Signs Temp Pulse Resp BP Pulse Ox 98 F 78 18 102/56 L 98 08/12/19 09:00 08/12/19 09:00 08/12/19 09:00 08/12/19 09:00 08/12/19 09:00 HEENT - Atraumatic, Normocephalic. Heart - S1, S2 RRR Lungs - clear to auscultation Abdomen - High BMI. Soft, non-tender. Bowel Sounds normal. Extremities - no edema, no calf tenderness. Laboratory Results - last 24 hr 08/10/19 08/11/19 08/12/19 07:20 22:02 06:35 WBC 8.2 RBC 4.50 Hgb 13.2 Hct 38.0 MCV 84.6 MCH 29.4 MCHC 34.7 RDW 13.3 Plt Count 226 MPV 8.6 Sodium Potassium Chloride Carbon Dioxide Anion Gap BUN Creatinine Est GFR (CKD-EPI)AfAm Est GFR (CKD-EPI)NonAf POC Glucometer 107 Random Glucose Calcium Total Bilirubin AST ALT Alkaline Phosphatase Liver GGT 404 H Liver Total Bilirubin 0.9 Liver Fibrosis ALT 501 H Liver Haptoglobin 140 Liver Fibrosis Score 0.43 H Necroinflammator Score 0.96 H Necroinflam Pat Score Necroinflammator Grade A3-severe activity Total Protein Albumin Apolipoprotein A-1 82 L Lipase Liver Fibrosis Comment Liver Fibrosis Limits Liver Fibrosis Interp 08/12/19 08/12/19 06:35 06:35 WBC RBC Hgb Hct MCV MCH MCHC RDW Plt Count MPV Sodium 140 Potassium 3.6 Chloride 107 Carbon Dioxide 27 Anion Gap 6 L BUN 9.3 Creatinine 0.9 Est GFR (CKD-EPI)AfAm 114.21 Est GFR (CKD-EPI)NonAf 98.54 POC Glucometer Random Glucose 111 H Calcium 8.3 L Total Bilirubin 0.8 AST 37 ALT 214 H Alkaline Phosphatase 98 Liver GGT Liver Total Bilirubin Liver Fibrosis ALT Liver Haptoglobin Liver Fibrosis Score Necroinflammator Score Necroinflam Pat Score Necroinflammator Grade Total Protein 6.7 Albumin 3.0 L Apolipoprotein A-1 Lipase 291 Liver Fibrosis Comment Liver Fibrosis Limits Liver Fibrosis Interp Current Medications Generic Name Dose Route Start Last Admin Trade Name Emily PRN Reason Stop Dose Admin Heparin Sodium (Porcine) 5,000 unit 08/10/19 06:00 08/12/19 13:52 Heparin - SQ 5,000 unit TID DMITRY Administration Hydromorphone HCl 1 mg 08/10/19 11:32 08/11/19 01:57 Dilaudid Vial - IVPUSH 1 mg Q4H PRN Administration PAIN LEVEL 7 - 10 Lactated Ringer's 1,000 ml in 1,000 mls @ 100 mls/hr 08/10/19 14:54 08/11/19 16:28 Lactated Ringers Solution IV Not Given ASDIR DMITRY Ondansetron HCl 4 mg 08/10/19 02:08 08/11/19 02:06 Zofran Injection IVPUSH 4 mg Q4H PRN Administration NAUSEA AND/OR VOMITING Pantoprazole Sodium 40 mg 08/10/19 11:30 08/12/19 09:47 Protonix Iv IVPUSH 40 mg DAILY DMITRY Administration ASSESSMENT AND PLAN: 53 year old male with no significant PMH, presented with epigastric abdominal pain associated with nausea, found to have acute pancreatitis. 1. Acute Pancreatitis sec to Gallstones (passed CBD stone) Clinically improving, tolerating full liquids - for diet advancement to regular. Lipase levels significantly improved. LFTs improving MRI - shows extensive pancreatitis with devika-pancreatic edema, no necrosis or cyst/abscess; cholelithiasis, no choledocholithiasis or CBD dilatation. GI following -recommend in-patient Surgery eval. Dr. Guaman consulted. Continue to advance diet. Medically stable for discharge if Surgery deems cholecystectomy suitable as out- patient. Otherwise, for in-patient cholecystectomy. DVT Px - Heparin SQ GI Px - PPI
--- NOTE | 2019-08-12 15:07 | PN ---
Physical Exam: SUBJECTIVE: Patient seen and examined. Pt reports minimal pain. Tolerating diet , advanced to regular. Asymptomatic and afebrile. Denies f/c/n/v/d/sob/cp. OBJECTIVE: Vital Signs Period Temp Pulse Resp BP Sys/Kerr Pulse Ox Last 24 Hr 98 F-100.7 F 78-84 18-20 102-141/56-77 98 GENERAL: The patient is awake, alert, and fully oriented, in no acute distress. EYES: PERRL, extraocular movements intact, sclera anicteric, conjunctiva clear. No ptosis. ENT: Ears normal, nares patent, oropharynx clear without exudates, NECK: Trachea midline, full range of motion, supple. LUNGS: Breath sounds equal, clear to auscultation bilaterally, no wheezes, no crackles, HEART: Regular rate and rhythm, S1, S2 without murmur, rub or gallop. ABDOMEN: Soft, only minimally tender on the left lower quadrant, nondistended, normoactive bowel sounds, no guarding, EXTREMITIES: 2+ pulses, warm, well-perfused, no edema. NEUROLOGICAL: Cranial nerves II through XII grossly intact. Normal speech, gait not observed. PSYCH: Normal mood, normal affect. SKIN: Warm, dry, normal turgor, no rashes or lesions noted Laboratory Results - last 24 hr CBC,CMP WBC 8.2 K/mm3 (4.0-10.0) 08/12/19 06:35 RBC 4.50 M/mm3 (4.00-5.60) 08/12/19 06:35 Hgb 13.2 GM/dL (11.7-16.9) 08/12/19 06:35 Hct 38.0 % (35.4-49) 08/12/19 06:35 MCV 84.6 fl (80-96) 08/12/19 06:35 MCH 29.4 pg (25.7-33.7) 08/12/19 06:35 MCHC 34.7 g/dl (32.0-35.9) 08/12/19 06:35 RDW 13.3 % (11.9-15.9) 08/12/19 06:35 Plt Count 226 K/MM3 (134-434) 08/12/19 06:35 MPV 8.6 fl (7.5-11.1) 08/12/19 06:35 Absolute Neuts (auto) 7.1 K/mm3 (1.5-8.0) 08/11/19 05:15 Neutrophils % 72.3 % (42.8-82.8) 08/11/19 05:15 Lymphocytes % 18.8 % (8-40) 08/11/19 05:15 Monocytes % 7.1 % (3.8-10.2) 08/11/19 05:15 Eosinophils % 1.5 % (0-4.5) 08/11/19 05:15 Basophils % 0.3 % (0-2.0) 08/11/19 05:15 Nucleated RBC % 0 % (0-0) 08/11/19 05:15 Sodium 140 mmol/L (136-145) 08/12/19 06:35 Potassium 3.6 mmol/L (3.5-5.1) 08/12/19 06:35 Chloride 107 mmol/L (98-107) 08/12/19 06:35 Carbon Dioxide 27 mmol/L (21-32) 08/12/19 06:35 Anion Gap 6 MMOL/L (8-16) L 08/12/19 06:35 BUN 9.3 mg/dL (7-18) 08/12/19 06:35 Creatinine 0.9 mg/dL (0.55-1.3) 08/12/19 06:35 Est GFR (CKD-EPI)AfAm 114.21 08/12/19 06:35 Est GFR (CKD-EPI)NonAf 98.54 08/12/19 06:35 POC Glucometer 107 UNITS (80-120) 08/11/19 22:02 Random Glucose 111 mg/dL (74-106) H 08/12/19 06:35 Calcium 8.3 mg/dL (8.5-10.1) L 08/12/19 06:35 Total Bilirubin 0.8 mg/dL (0.2-1) 08/12/19 06:35 Direct Bilirubin 0.6 mg/dL (0.0-0.2) H 08/10/19 06:00 AST 37 U/L (15-37) 08/12/19 06:35 ALT 214 U/L (13-61) H 08/12/19 06:35 Alkaline Phosphatase 98 U/L (45-117) 08/12/19 06:35 Liver GGT 404 IU/L (0-65) H 08/10/19 07:20 Liver Total Bilirubin 0.9 mg/dL (0.0-1.2) 08/10/19 07:20 Liver Fibrosis ALT 501 IU/L (0-55) H 08/10/19 07:20 Liver Haptoglobin 140 mg/dL (29-370) 08/10/19 07:20 Liver Fibrosis Score 0.43 (0.00-0.21) H 08/10/19 07:20 Necroinflammator Score 0.96 (0.00-0.17) H 08/10/19 07:20 Necroinflam Pat Score (.) 08/10/19 07:20 Necroinflammator Grade A3-severe activity (.) 08/10/19 07:20 Total Protein 6.7 g/dl (6.4-8.2) 08/12/19 06:35 Albumin 3.0 g/dl (3.4-5.0) L 08/12/19 06:35 Triglycerides 56 mg/dL (0-150) 08/10/19 06:00 Cholesterol 128 mg/dL (50-200) 08/10/19 06:00 Total LDL Cholesterol 71 mg/dL (5-100) 08/10/19 06:00 HDL Cholesterol 42 mg/dL (40-60) 08/10/19 06:00 Apolipoprotein A-1 82 mg/dL (101-178) L 08/10/19 07:20 Total Amylase 490 U/L (25-115) H 08/10/19 06:00 Lipase 291 U/L (73-393) 08/12/19 06:35 Active Medications Generic Name Dose Route Start Last Admin Trade Name Freq PRN Reason Stop Dose Admin Heparin Sodium (Porcine) 5,000 unit 08/10/19 06:00 08/12/19 13:52 Heparin - SQ 5,000 unit TID DMITRY Administration Hydromorphone HCl 1 mg 08/10/19 11:32 08/11/19 01:57 Dilaudid Vial - IVPUSH 1 mg Q4H PRN Administration PAIN LEVEL 7 - 10 Lactated Ringer's 1,000 ml in 1,000 mls @ 100 mls/hr 08/10/19 14:54 08/11/19 16:28 Lactated Ringers Solution IV Not Given ASDIR DMITRY Ondansetron HCl 4 mg 08/10/19 02:08 08/11/19 02:06 Zofran Injection IVPUSH 4 mg Q4H PRN Administration NAUSEA AND/OR VOMITING Pantoprazole Sodium 40 mg 08/10/19 11:30 08/12/19 09:47 Protonix Iv IVPUSH 40 mg DAILY DMITRY Administration ASSESSMENT/PLAN: 53 year old male with no PMH, presented to the ER at [place] with complaints of epigastric abdominal pain associated with nausea since yesterday w / gallstones on US and Lipase of >30k, admitted for management of acute pancreatitis #Acute pancreatitis Lipase trending down MRCP ordered- N gallstones visualized, diffuse pancreatic edema w/ extensive peripancreatic edema and fluid extending inferiorly along the retropertoneal planes and laterally surrounding the spleen. IVF at 100 IV dilaudid and Zofran PRN ordered for symptomatic management IV protonix 40 daily Supportive management Surgery consulted- appreciate consult Cholecystectomy scheduled for tomorrow 9:30 am #Transaminitis AST and ALT trending down #FEN L/R @ 100 started NPO after midnight monitor lytes #DVT Heparin 5000 SQ TID Dispo: elective chol scheduled for tomorrow, NPO after midnight Visit type - Emergency Visit Emergency Visit: Yes ED Registration Date: 08/09/19 Care time: The patient presented to the Emergency Department on the above date and was hospitalized for further evaluation of their emergent condition. - New Patient This patient is new to me today: Yes Date on this admission: 08/13/19 - Critical Care Critical Care patient: No - Discharge Referral Referred to [facility] Med P.C.: No ATTENDING PHYSICIAN STATEMENT I saw and evaluated the patient. I reviewed the resident's note and discussed the case with the resident. I agree with the resident's findings and plan as documented. SUBJECTIVE: OBJECTIVE: ASSESSMENT AND PLAN:
[2019-08-12] MEDS: LACTATED RINGERS SOLUTION 1,000 ML/1,000 ML INFUS.BAG IV SCH (16:25)
--- NOTE | 2019-08-12 19:09 | PN ---
Progress Note (short form) - Note Progress Note: No abdominal pain. VSS Abd soft, ND/NT AST now normal. ALT declining. For cholecystecomy tomorrow
[2019-08-13] MEDS: HEPARIN NA (PORCINE) 5,000 UNITS/ML 1ML VIAL SQ SCH ×3 (05:12→21:33)
[2019-08-13] MEDS: LACTATED RINGERS SOLUTION 1,000 ML/1,000 ML INFUS.BAG IV SCH ×3 (06:56→21:33)
[2019-08-13 08:21] LABS: HEMATOCRIT 37.6 % (35.4-49); HEMOGLOBIN 13.1 GM/dL (11.7-16.9); MCH 29.5 pg (25.7-33.7); MCHC 34.8 g/dl (32.0-35.9); MEAN CELL VOLUME 84.6 fl (80-96); MEAN PLT VOLUME 8.8 fl (7.5-11.1); PLATELET COUNT 235 K/MM3 (134-434); RBC 4.44 M/mm3 (4.00-5.60); RDW 13.5 % (11.9-15.9); WHITE BLOOD COUNT 7.5 K/mm3 (4.0-10.0)
[2019-08-13] MEDS: PANTOPRAZOLE SODIUM 40 MG VIAL IVPUSH SCH (08:45)
[2019-08-13 09:15] LABS: ALBUMIN 3.2 g/dl (3.4-5.0); BILIRUBIN,TOTAL 0.7 mg/dL (0.2-1); BLOOD UREA NITROGEN 12.1 mg/dL (7-18); CALCIUM 8.6 mg/dL (8.5-10.1); CREATININE 0.9 mg/dL (0.55-1.3); MAGNESIUM 2.3 mg/dL (1.8-2.4); POTASSIUM 3.8 mmol/L (3.5-5.1); TOT PROT 6.8 g/dl (6.4-8.2)
[2019-08-13] MEDS ORDERED: ROCURONIUM BROMIDE 50 MG/5 ML SYRINGE ONE (09:33)
[2019-08-13] MEDS ORDERED: MIDAZOLAM HCL 2 MG/2 ML SINGLE DOSE VIAL ONE (09:33)
[2019-08-13] MEDS ORDERED: LIDOCAINE HCL/PF 2% SDV 5ML VIAL ONE (09:33)
[2019-08-13] MEDS ORDERED: PROPOFOL 20 ML ONE ×2 (09:33)
[2019-08-13] MEDS ORDERED: fentaNYL CITRATE 250 MCG/5 ML VIAL ONE (09:33)
[2019-08-13] MEDS ORDERED: DESFLURANE GAS 240 ML BOTTLE IH ONE (09:38)
[2019-08-13] MEDS ORDERED: cefOXitin SODIUM 2 GM VIAL (RESTRICTED TO ID) IVPB ONE ×2 (09:40→10:14)
[2019-08-13] MEDS ORDERED: DEXAMETHASONE SOD PHOSPHATE 4 MG/1 ML VIAL ONE (10:37)
[2019-08-13] MEDS ORDERED: GLYCOPYRROLATE 0.2 MG/1 ML VIAL ONE (10:45)
[2019-08-13] MEDS ORDERED: NEOSTIGMINE METHYLSULFATE 0.5 MG/ML - 10 ML MDV ONE (10:45)
[2019-08-13] MEDS ORDERED: BUPIVACAINE HCL/PF 0.5% (5MG/ML) 10 ML VIAL IJ ONE ×4 (11:27→11:30)
[2019-08-13] MEDS ORDERED: KETOROLAC TROMETHAMINE 30 MG/1 ML VIAL ONE (11:29)
--- NOTE | 2019-08-13 11:47 | OP ---
Operative Note - Note: Operative Date: 08/13/19 Pre-Operative Diagnosis: cholelithiasis/acute cholecystitis Operation: laparoscopic cholecystectomy Findings: acute cholecystitis/cholelithiasis/adhesions from previous surgery. Post-Operative Diagnosis: Same as Pre-op Surgeon: Sudhir Guaman Sharepoint Analyst: Blanca Pal Anesthesia: General Specimens Removed: gallbladder and contents Estimated Blood Loss (mls): 20
--- NOTE | 2019-08-13 11:54 | CONSULT ---
- Consultation REQUESTING PROVIDER: Ethan AIKEN CONSULT REQUEST: We have been asked to surgically evaluate this patient for symptomatic gallbladder disease PCP:Jean Claude Long MD HISTORY OF PRESENT ILLNESS: [facility] 08/12/2019 for evaluation and management of symptomatic gallbladder disease. He haswith no significant past medical history , presented to the [facility] ED with 3-4 days of epigastric abdominal pain and nausea shortly after eating a large meal . Patient notes the pain to worsen with touch and states he had several episodes of retching without any vomiting. He denies dark urinwe/light stools or any other GI/ c/o. He denies any recent fevers, chills, headache or dizziness. He denies any recent diarrhea or constipation. He denies any recent chest pain or shortness of breath. He denies any recent dysuria, frequency, urgency or hematuria. PMHx: ?GERD PSHx: open appendectomy Allergies Allergy/AdvReac Type Severity Reaction Status Date / Time No Known Allergies Allergy Verified 08/09/19 15:53 REVIEW OF SYSTEMS: CONSTITUTIONAL: Absent: fever, chills, diaphoresis, generalized weakness, malaise, loss of appetite, weight change CARDIOVASCULAR: Absent: chest pain, syncope, palpitations, irregular heart rate, lightheadedness , peripheral edema RESPIRATORY: Absent: cough, shortness of breath, dyspnea with exertion, wheezing, stridor, hemoptysis GASTROINTESTINAL: Present: abdominal pain, abdominal distension, nausea, vomiting, Absent : diarrhea, constipation, melena, hematochezia GENITOURINARY: Absent: dysuria, frequency, urgency, hesitancy, hematuria, flank pain, genital pain MUSCULOSKELETAL: Absent: myalgia, arthralgia, joint swelling, back pain, neck pain SKIN: Absent: rash, itching, pallor HEMATOLOGIC/IMMUNOLOGIC: Absent: easy bleeding, easy bruising, lymphadenopathy NEUROLOGIC: Absent: headache, focal weakness, paresthesias, dizziness, unsteady gait, seizure, mental status changes, bladder or bowel incontinence PSYCHIATRIC: Absent: anxiety, depression, suicidal or homicidal ideation, hallucinations. PHYSICAL EXAM: GENERAL: Awake, alert, and fully oriented, in no acute distress. HEAD: Normal with no signs of trauma. EYES: PERRL, sclera anicteric, conjunctiva clear. NECK: Normal ROM, supple without lymphadenopathy, JVD, or masses. ABDOMEN: Soft, tender RUQ, not distended, normoactive bowel sounds, guarding, no rebound, no masses. No organomegaly. No hernias; healed open appendectomy incision. MUSCULOSKELETAL: Normal ROM at all joints. No bony deformities or tenderness. No CVA tenderness. UPPER EXTREMITIES: 2+ pulses, warm, well-perfused. No cyanosis. Cap refill <2 seconds. No peripheral edema. LOWER EXTREMITIES: 2+ pulses, warm, well-perfused. No calf tenderness. No peripheral edema. NEUROLOGICAL: Normal speech, gait not observed. PSYCH: Cooperative. Good eye contact. Appropriate mood and affect. SKIN: Warm, dry, normal turgor, no rashes or lesions noted. Vital Signs Temperature 98.5 F 08/13/19 08:45 Pulse Rate 78 08/13/19 08:45 Respiratory Rate 18 08/13/19 08:45 Blood Pressure 140/72 08/13/19 08:45 O2 Sat by Pulse Oximetry (%) 97 08/12/19 21:00 Lab Results WBC 7.5 K/mm3 (4.0-10.0) 08/13/19 07:00 RBC 4.44 M/mm3 (4.00-5.60) 08/13/19 07:00 Hgb 13.1 GM/dL (11.7-16.9) 08/13/19 07:00 Hct 37.6 % (35.4-49) 08/13/19 07:00 MCV 84.6 fl (80-96) 08/13/19 07:00 MCHC 34.8 g/dl (32.0-35.9) 08/13/19 07:00 RDW 13.5 % (11.9-15.9) 08/13/19 07:00 Plt Count 235 K/MM3 (134-434) 08/13/19 07:00 Sodium 140 mmol/L (136-145) 08/13/19 07:00 Potassium 3.8 mmol/L (3.5-5.1) 08/13/19 07:00 Chloride 108 mmol/L (98-107) H 08/13/19 07:00 Carbon Dioxide 25 mmol/L (21-32) 08/13/19 07:00 Anion Gap 8 MMOL/L (8-16) 08/13/19 07:00 BUN 12.1 mg/dL (7-18) 08/13/19 07:00 Creatinine 0.9 mg/dL (0.55-1.3) 08/13/19 07:00 Random Glucose 107 mg/dL (74-106) H 08/13/19 07:00 Calcium 8.6 mg/dL (8.5-10.1) 08/13/19 07:00 Imaging w/u to date reviewed IMP:cholelithiasis; choledocholithiasis ruled out and resolving possible gallstone pancreatitis. PLAN: For lab missy possible open as definitive tx.; r.b.t.a's were d/w the the patient 08/12/2019 and agian today and informed consent obtained. Sudhir Guaman MD FACS
--- NOTE | 2019-08-13 12:02 | SURG ---
Surgery Interlocking Installer Note Interlocking Installer: Blanca Pal PA-C Date of Service: 08/13/19 Diagnosis: cholelithiasis/acute cholecystitis Procedure: laparoscopic cholecystectomy I was present for the entirety of the operative procedure. For further detail, please refer to operative report. Visit type - Case Type Case Type: ED Admission - Emergency Emergency Visit: Yes ED Registration Date: 08/09/19 Care time: The patient presented to the Emergency Department on the above date and was hospitalized for further evaluation of their emergent condition. - New patient This patient is new to me today: Yes Date on this admission: 08/13/19
[2019-08-13] MEDS ORDERED: oxyCODONE HCL 5 MG TABLET PO PRN ×2 (12:07)
[2019-08-13] MEDS ORDERED: ACETAMINOPHEN 325 MG TABLET (FP) PO PRN (12:08)
[2019-08-13] MEDS ORDERED: ONDANSETRON 4 MG/2 ML VIAL IVPUSH PRN (12:35)
--- NOTE | 2019-08-13 13:48 | OP ---
DATE OF OPERATION: 08/13/2019 PREOPERATIVE DIAGNOSIS: Cholelithiasis and acute cholecystitis. POSTOPERATIVE DIAGNOSIS: Cholelithiasis and acute cholecystitis. PROCEDURE: Laparoscopic cholecystectomy. SURGEON: Sudhir Guaman MD THIRD OFFICER: Blanca Pal PA-C ANESTHESIA: General. OPERATIVE FINDINGS: Acute cholecystitis, cholelithiasis, and adhesions from previous surgery. The rest of the findings were unremarkable. DESCRIPTION OF PROCEDURE: The patient was placed on the operating room table in supine position. After the induction of general anesthesia, the patient's abdomen was prepped with ChloraPrep and draped in sterile fashion. Time-out was taken and then pneumoperitoneum established above the umbilicus using a Veress needle. Once 15 mm of intra-abdominal pressure was obtained, a 5-mm port was placed at the umbilicus. Additional lateral 5-mm ports and a subxiphoid 12-mm port were placed and laparoscopy carried out, and the previously noted findings were observed. The gallbladder was placed on cephalad and lateral traction, and dissection was begun at the neck of the gallbladder where the peritoneum was opened medially and laterally using blunt and sharp dissection and electrocautery. Dissection continued in the triangle of Calot where the cystic duct was identified coursing from the neck of the gallbladder distally to the common bile duct. It was dissected proximally and distally for length. Similarly, the artery was similarly identified and dissected. A critical view of safety was taken, and then the cystic duct divided proximally and distally using Endo Quoc after it was clipped twice proximally and distally with large hemoclips. The artery was similarly clipped and divided. Hemostasis was checked for and noted to be good and then the gallbladder was removed from the liver bed in a retrograde fashion using electrocautery. Prior to removal from the edge of the liver, hemostasis was again verified and then the gallbladder removed from the edge of the liver, placed in an EndoCatch, and brought out through the subxiphoid port. Pneumoperitoneum was reestablished, hemostasis verified again, and then the 5-mm lateral and subxiphoid ports were removed under laparoscopic vision without evidence of bleeding from the port sites. The umbilical port was removed and the pneumoperitoneum evacuated. All port sites were infiltrated with 0.5% Marcaine and the skin edges closed with 4-0 Biosyn in a subcuticular and continuous fashion. Steri-Strips and Band-Aid dressings were placed and the procedure terminated at this point and the patient aroused from general anesthesia and transferred to the post anesthesia care unit in stable condition awake and alert. ESTIMATED BLOOD LOSS: 20 mL. REPLACEMENTS: Crystalloid. DRAINS: None. SPECIMENS: Gallbladder and contents to Pathology. I, Sudhir Guaman, was physically present in the operating room from the time the patient was placed on the operating room table until he was transferred to the post anesthesia care unit in my company. MD BELL See/[id number] MTDD
--- NOTE | 2019-08-13 14:52 | PN.GI ---
GI Progress Note Subjective: S/P Lap Alysa today Pain at trochar sites - Objective Vital Signs: Vital Signs Temperature 97.9 F 08/13/19 14:41 Pulse Rate 87 08/13/19 14:41 Respiratory Rate 20 08/13/19 14:41 Blood Pressure 123/67 08/13/19 14:41 O2 Sat by Pulse Oximetry (%) 98 08/13/19 13:35 Constitutional: Calm Eyes: No: Sclera Icterus Cardiovascular: Yes: Regular Rate and Rhythm Respiratory: Yes: Diminished (at bases bilaterally) Gastrointestinal Inspection: Yes: Scars (Dressed trochar scars, + RLQ scar). No : Distention ...Auscultate: Yes: Normoactive Bowel Sounds ...Palpate: Yes: Soft, Tenderness (Tenderness at trochar sites) ...Percussion: No: Tympanitic Edema: No (No LE edema) Neurological: Yes: Alert Labs: CBC, BMP 08/13/19 07:00 08/13/19 07:00 Problem List - Problems (1) Acute pancreatitis Assessment/Plan: Clinically improved and now S/P Lap Alysa Post op care per surgery IV Fluids until diet advanced AM Labs Code(s): K85.90 - ACUTE PANCREATITIS WITHOUT NECROSIS OR INFECTION, UNSP Qualifiers: Pancreatitis type: unspecified pancreatitis type Acute pancreatitis complication: unspecified Qualified Code(s): K85.90 - Acute pancreatitis without necrosis or infection, unspecified
--- NOTE | 2019-08-13 15:54 | PN ---
Physical Exam: SUBJECTIVE: Patient seen and examined. Pt reports minimal pain. Tolerating diet , advanced to regular. Asymptomatic and afebrile. Denies f/c/n/v/d/sob/cp. OBJECTIVE: Vital Signs Period Temp Pulse Resp BP Sys/Kerr Pulse Ox Last 24 Hr 97.9 F-98.8 F 73-88 16-20 116-151/62-88 93-98 GENERAL: The patient is awake, alert, and fully oriented, in no acute distress. EYES: PERRL, extraocular movements intact, sclera anicteric, conjunctiva clear. No ptosis. ENT: Ears normal, nares patent, oropharynx clear without exudates, NECK: Trachea midline, full range of motion, supple. LUNGS: Breath sounds equal, clear to auscultation bilaterally, no wheezes, no crackles, HEART: Regular rate and rhythm, S1, S2 without murmur, rub or gallop. ABDOMEN: Soft, only minimally tender on the left lower quadrant, nondistended, normoactive bowel sounds, no guarding, EXTREMITIES: 2+ pulses, warm, well-perfused, no edema. NEUROLOGICAL: Cranial nerves II through XII grossly intact. Normal speech, gait not observed. PSYCH: Normal mood, normal affect. SKIN: Warm, dry, normal turgor, no rashes or lesions noted Laboratory Results - last 24 hr 08/13/19 08/13/19 07:00 07:00 WBC 7.5 RBC 4.44 Hgb 13.1 Hct 37.6 MCV 84.6 MCH 29.5 MCHC 34.8 RDW 13.5 Plt Count 235 MPV 8.8 Sodium 140 Potassium 3.8 Chloride 108 H Carbon Dioxide 25 Anion Gap 8 BUN 12.1 Creatinine 0.9 Est GFR (CKD-EPI)AfAm 114.21 Est GFR (CKD-EPI)NonAf 98.54 Random Glucose 107 H Calcium 8.6 Magnesium 2.3 Total Bilirubin 0.7 AST 28 ALT 153 H Alkaline Phosphatase 92 Total Protein 6.8 Albumin 3.2 L Active Medications Generic Name Dose Route Start Last Admin Trade Name Freq PRN Reason Stop Dose Admin Acetaminophen 650 mg 08/13/19 12:08 08/13/19 14:15 Tylenol - PO 650 mg Q6H PRN Administration FEVER Fentanyl 50 mcg 08/13/19 12:35 Sublimaze Injection - IVPUSH 08/14/19 12:34 [id number] PRN PAIN-PACU ORDER X 4 DOSES ONLY Heparin Sodium (Porcine) 5,000 unit 08/13/19 14:00 08/13/19 14:10 Heparin - SQ 5,000 unit TID DMITRY Administration Lactated Ringer's 1,000 ml in 1,000 mls @ 100 mls/hr 08/13/19 12:35 08/13/19 14:16 Lactated Ringers Solution IV 100 mls/hr ASDIR DMITRY Administration Ondansetron HCl 4 mg 08/13/19 12:35 Zofran Injection IVPUSH Q4H PRN NAUSEA AND/OR VOMITING Oxycodone HCl 5 mg 08/13/19 12:07 Roxicodone - PO Q4H PRN PAIN LEVEL 1-5 Oxycodone HCl 10 mg 08/13/19 12:07 08/13/19 14:14 Roxicodone - PO 10 mg Q4H PRN Administration PAIN LEVEL 6-10 Pantoprazole Sodium 40 mg 08/14/19 10:00 Protonix Iv IVPUSH DAILY DMITRY ASSESSMENT/PLAN: 53 year old male with no PMH, presented to the ER at [place] with complaints of epigastric abdominal pain associated with nausea since yesterday w / gallstones on US and Lipase of >30k, admitted for management of acute pancreatitis #Acute pancreatitis Lipase trending down MRCP ordered- N gallstones visualized, diffuse pancreatic edema w/ extensive peripancreatic edema and fluid extending inferiorly along the retropertoneal planes and laterally surrounding the spleen. IVF at 100 IV dilaudid and Zofran PRN ordered for symptomatic management IV protonix 40 daily Supportive management Surgery consulted- appreciate consult s/p Alysa monitor overnight and advance diet from clears to soft Likely d/c in the am if diet tolerated #Transaminitis AST and ALT trending down #FEN L/R @ 100 started clears for now, soft in am monitor lytes #DVT Heparin 5000 SQ TID Dispo: monitor overnight, advance diet Visit type - Emergency Visit Emergency Visit: Yes ED Registration Date: 08/09/19 Care time: The patient presented to the Emergency Department on the above date and was hospitalized for further evaluation of their emergent condition. - New Patient This patient is new to me today: Yes Date on this admission: 08/14/19 - Critical Care Critical Care patient: No - Discharge Referral Referred to [facility] Med P.C.: No ATTENDING PHYSICIAN STATEMENT I saw and evaluated the patient. I reviewed the resident's note and discussed the case with the resident. I agree with the resident's findings and plan as documented. SUBJECTIVE: OBJECTIVE: ASSESSMENT AND PLAN:
--- NOTE | 2019-08-13 17:45 | PN ---
Teaching Attending Note Name of Resident: Gunner Up ATTENDING PHYSICIAN STATEMENT I saw and evaluated the patient. I reviewed the resident's note and discussed the case with the resident. I agree with the resident's findings and plan as documented. SUBJECTIVE: Reports continued improvement in abdominal pain. No nausea/vomiting. OBJECTIVE: Fever resolved. Hemodynamically Stable. Last Vital Signs Temp Pulse Resp BP Pulse Ox 97.9 F 87 20 123/67 98 08/13/19 14:41 08/13/19 14:41 08/13/19 14:41 08/13/19 14:41 08/13/19 13:35 HEENT - Atraumatic, Normocephalic. Heart - S1, S2, RRR Lungs - clear to auscultation Abdomen - High BMI. Soft, non-tender. Bowel Sounds normal. Extremities - no edema, no calf tenderness. Laboratory Results - last 24 hr 08/13/19 08/13/19 07:00 07:00 WBC 7.5 RBC 4.44 Hgb 13.1 Hct 37.6 MCV 84.6 MCH 29.5 MCHC 34.8 RDW 13.5 Plt Count 235 MPV 8.8 Sodium 140 Potassium 3.8 Chloride 108 H Carbon Dioxide 25 Anion Gap 8 BUN 12.1 Creatinine 0.9 Est GFR (CKD-EPI)AfAm 114.21 Est GFR (CKD-EPI)NonAf 98.54 Random Glucose 107 H Calcium 8.6 Magnesium 2.3 Total Bilirubin 0.7 AST 28 ALT 153 H Alkaline Phosphatase 92 Total Protein 6.8 Albumin 3.2 L Current Medications Generic Name Dose Route Start Last Admin Trade Name Freq PRN Reason Stop Dose Admin Acetaminophen 650 mg 08/13/19 12:08 08/13/19 14:15 Tylenol - PO 650 mg Q6H PRN Administration FEVER Fentanyl 50 mcg 08/13/19 12:35 Sublimaze Injection - IVPUSH 08/14/19 12:34 [id number] PRN PAIN-PACU ORDER X 4 DOSES ONLY Heparin Sodium (Porcine) 5,000 unit 08/13/19 14:00 08/13/19 14:10 Heparin - SQ 5,000 unit TID DMITRY Administration Lactated Ringer's 1,000 ml in 1,000 mls @ 100 mls/hr 08/13/19 12:35 08/13/19 14:16 Lactated Ringers Solution IV 100 mls/hr ASDIR DMITRY Administration Ondansetron HCl 4 mg 08/13/19 12:35 Zofran Injection IVPUSH Q4H PRN NAUSEA AND/OR VOMITING Oxycodone HCl 5 mg 08/13/19 12:07 Roxicodone - PO Q4H PRN PAIN LEVEL 1-5 Oxycodone HCl 10 mg 08/13/19 12:07 08/13/19 14:14 Roxicodone - PO 10 mg Q4H PRN Administration PAIN LEVEL 6-10 Pantoprazole Sodium 40 mg 08/14/19 10:00 Protonix Iv IVPUSH DAILY DMITRY ASSESSMENT AND PLAN: 53 year old male with no significant PMH, presented with epigastric abdominal pain associated with nausea, found to have acute pancreatitis. 1. Acute Pancreatitis sec to Gallstones (passed CBD stone) Clinically improving, tolerated regular diet, now NPO for surgery. Lipase levels significantly improved. LFTs improving MRI - shows extensive pancreatitis with devika-pancreatic edema, no necrosis or cyst/abscess; cholelithiasis, no choledocholithiasis or CBD dilatation. GI following For cholecystectomy today. Discharge as per Surgery post-op. DVT Px - Heparin SQ GI Px - PPI
[2019-08-14] MEDS: HEPARIN NA (PORCINE) 5,000 UNITS/ML 1ML VIAL SQ SCH (05:53)
[2019-08-14 07:22] LABS: BASO % 0.1 % (0-2.0); EOS % 0.3 % (0-4.5); HEMATOCRIT 35.2 % (35.4-49); HEMOGLOBIN 12.3 GM/dL (11.7-16.9); MCH 29.6 pg (25.7-33.7); MCHC 34.8 g/dl (32.0-35.9); MEAN CELL VOLUME 84.9 fl (80-96); MEAN PLT VOLUME 8.3 fl (7.5-11.1); MONO % 7.2 % (3.8-10.2); NEUT % 76.4 % (42.8-82.8); PLATELET COUNT 257 K/MM3 (134-434); RBC 4.15 M/mm3 (4.00-5.60); RDW 13.4 % (11.9-15.9)
[2019-08-14 07:43] LABS: ALBUMIN 2.8 g/dl (3.4-5.0); BILIRUBIN,TOTAL 0.4 mg/dL (0.2-1); BLOOD UREA NITROGEN 14.3 mg/dL (7-18); CALCIUM 8.6 mg/dL (8.5-10.1); CREATININE 0.9 mg/dL (0.55-1.3); POTASSIUM 4.6 mmol/L (3.5-5.1); TOT PROT 6.4 g/dl (6.4-8.2)
[2019-08-14 07:45] LABS: ALBUMIN 2.9 g/dl (3.4-5.0); BILIRUBIN,DIRECT 0.2 mg/dL (0.0-0.2); BILIRUBIN,TOTAL 0.4 mg/dL (0.2-1); TOT PROT 6.3 g/dl (6.4-8.2)
[2019-08-14] MEDS: LACTATED RINGERS SOLUTION 1,000 ML/1,000 ML INFUS.BAG IV SCH (08:25)
--- NOTE | 2019-08-14 08:30 | PN ---
Progress Note (short form) - Note Progress Note: SURGERY 53yo M s/p lap missy POD 1, pt seen and examined at bedside. Pt states that his abd pain is improved. Denies fever, chills, n/v. Pt tolerating clears and urinating well. Last Vital Signs Temp Pulse Resp BP Pulse Ox 98.6 F 63 20 120/55 L 98 08/14/19 05:56 08/14/19 05:56 08/14/19 05:56 08/14/19 05:56 08/13/19 21:00 CBC, BMP 08/14/19 06:40 08/14/19 06:40 PE Gen: A&O x3 Resp: breathing comfortably Abd: soft, nontender, nondistended, incisions clean with no erythema or discharge. Ext: no edema Problem List - Problems (1) Acute pancreatitis Assessment/Plan: Plan -pt appears to be doing well, if tolerates breakfast may be discharged from a surgical standpoint. -pt should follow up with Dr. Guaman in 1 week for postop check. Pt discussed with Dr. Guaman who agrees with plan Code(s): K85.90 - ACUTE PANCREATITIS WITHOUT NECROSIS OR INFECTION, UNSP Qualifiers: Pancreatitis type: biliary Acute pancreatitis complication: unspecified Qualified Code(s): K85.10 - Biliary acute pancreatitis without necrosis or infection
--- NOTE | 2019-08-14 08:32 | PN ---
Progress Note (short form) - Note Progress Note: Anesthesia POD#1 S/P LAP Cholecystectomy under [place] VSS,no N/V,started orals today,pain is under control. Sore throat is getting better. Pricilla Resendez MD.
[2019-08-14 08:42] VITALS: BP 119/65; PULSE 69; TEMP 99
[2019-08-14] MEDS ORDERED: PANTOPRAZOLE SODIUM 40 MG VIAL IVPUSH SCH (10:00)
[2019-08-14] MEDS ORDERED: PANTOPRAZOLE 40 MG TABLET PO SCH (10:00)
--- NOTE | 2019-08-14 16:45 | DS ---
Physical Exam: SUBJECTIVE: Patient seen and examined. Pt reports minimal pain. Tolerating diet , advanced to regular. Asymptomatic and afebrile. Denies f/c/n/v/d/sob/cp. OBJECTIVE: Vital Signs Period Temp Pulse Resp BP Sys/Kerr Pulse Ox Last 24 Hr 98.5 F-99 F 63-89 18-20 111-127/55-65 95-98 PHYSICAL EXAM GENERAL: The patient is awake, alert, and fully oriented, in no acute distress. LUNGS: Breath sounds equal, clear to auscultation bilaterally, no wheezes, no crackles, HEART: Regular rate and rhythm, S1, S2 without murmur, rub or gallop. ABDOMEN: Soft, only minimally tender on the left lower quadrant, nondistended, normoactive bowel sounds, no guarding, surgical sites w/out purulent discharge or drainage. EXTREMITIES: 2+ pulses, warm, well-perfused, no edema. NEUROLOGICAL: Normal speech, gait not observed. SKIN: Warm, dry, normal turgor, no rashes or lesions noted LABS Laboratory Results - last 24 hr 08/14/19 08/14/19 08/14/19 06:40 06:40 06:40 WBC 11.0 H RBC 4.15 Hgb 12.3 Hct 35.2 L MCV 84.9 MCH 29.6 MCHC 34.8 RDW 13.4 Plt Count 257 MPV 8.3 Absolute Neuts (auto) 8.4 H Neutrophils % 76.4 Lymphocytes % 16.0 Monocytes % 7.2 Eosinophils % 0.3 Basophils % 0.1 Nucleated RBC % 0 Sodium 142 Potassium 4.6 Chloride 109 H Carbon Dioxide 29 Anion Gap 5 L BUN 14.3 Creatinine 0.9 Est GFR (CKD-EPI)AfAm 114.21 Est GFR (CKD-EPI)NonAf 98.54 Random Glucose 109 H Calcium 8.6 Total Bilirubin 0.4 0.4 Direct Bilirubin 0.2 AST 35 34 ALT 127 H 128 H Alkaline Phosphatase 81 80 Total Protein 6.4 6.3 L Albumin 2.8 L 2.9 L HOSPITAL COURSE: Date of Admission:08/09/19 53 year old male with no PMH, presented to the ER at [facility] with complaints of epigastric abdominal pain associated with nausea since yesterday w / gallstones on US and Lipase of >30k, admitted for management of acute pancreatitis 2/2 to Gall stone pancreatitis which likely passed as LFT began to trend down. In the ED, Abdomen US: Gallstones, fatty liver, no cholecystitis, no GB distension, AXR showed no free air. Pt was NPO w/ IVF at 100 and given IV dilaudid and Zofran PRN ordered for symptomatic management. GI and surgery was consulted. GI stated no intervention as the stone likely passed. Pt was found to have gallstones in the gallbladder on US and MRCP and was taken to OR for elective missy. S/p post op, pt was stable and was tolerating diet well. He was discharged on instructions to maintain his surgical site dry and clean and f.u with Dr. Guaman's office. Abdomen US: Gallstones, fatty liver, no cholecystitis, no GB distension, AXR showed no free air MRCP ordered- gallstones visualized in the gb, diffuse pancreatic edema w/ extensive peripancreatic edema and fluid extending inferiorly along the retropertoneal planes and laterally surrounding the spleen. Date of Discharge: 08/14/19 Minutes to complete discharge: 40 Discharge Summary Problems reviewed: Yes Reason For Visit: PANCREATITIS Condition: Good - Instructions Diet, Activity, Other Instructions: Dr. Guaman Discharge Instructions Dear MINDI GIPSON, Post Operative Instructions Physical activity Resume your normal everyday activity as tolerated no heavy lifting or exercise until seen by your surgeon. You may walk unlimited amounts of and climb stairs. You may resume driving the car when you feel safe and comfortable behind the wheel and are no longer taking narcotics. Wound care If you have a bandage, leave it on, and keep dry for 48 hours. After that time discard the outer bandage. If there are tapes on the skin under the outer bandage, leave them in place. They will peel off in the next 7 to 10 days. Do Not peel them off. You may shower 2 days after surgery but do not submerge the incisions. If there are tapes present on the skin, they can get wet. Do not apply lotion or ointments to incisions. Diet There are no dietary restrictions. Eat healthy, high-fiber foods. Drink 6 to 8 glasses of liquid each day. This will assist in keeping your bowels are regular. Pain management You may take Tylenol or acetaminophen or Ibuprofen (for example, Motrin, Advil etc.) Any pain prescription medication ordered should be taken as prescribed for moderate to severe pain. Call Dr. Guaman for any of the following: Severe pain not relieved by medication Fever of 101 or higher Excessive bleeding or drainage on dressing Inability to urinate If you experience any chest pain or shortness of breath please seek emergency treatment. Call the office at [phone] for a post operative appointment in 7 - 10 days. Please follow up with your primary care physician, Dr. Rodriguez within 1 week. Referrals: Sudhir Guaman MD [Staff Physician] - 1 Week Osmar Rodriguez MD [Primary Care Provider] - 1 Week Disposition: HOME This patient is new to me today: Yes Date on this admission: 08/14/19 Emergency Visit: Yes ED Registration Date: 08/09/19 Care time: The patient presented to the Emergency Department on the above date and was hospitalized for further evaluation of their emergent condition. Critical Care patient: No - Discharge Referral Referred to [facility] Med P.C.: No ATTENDING PHYSICIAN STATEMENT I saw and evaluated the patient. I reviewed the resident's note and discussed the case with the resident. I agree with the resident's findings and plan as documented. SUBJECTIVE: OBJECTIVE: ASSESSMENT AND PLAN:
--- NOTE | 2019-08-14 17:11 | PN ---
Teaching Attending Note Name of Resident: Gunner Up ATTENDING PHYSICIAN STATEMENT I saw and evaluated the patient. I reviewed the resident's note and discussed the case with the resident. I agree with the resident's findings and plan as documented. SUBJECTIVE: Reports continued improvement in abdominal pain. No nausea/vomiting. OBJECTIVE: Fever resolved. Hemodynamically Stable. Last Vital Signs Temp Pulse Resp BP Pulse Ox 99 F 69 20 119/65 95 08/14/19 08:00 08/14/19 08:00 08/14/19 08:00 08/14/19 08:00 08/14/19 10:00 Heart - S1, S2, RRR Lungs - clear to auscultation Abdomen - High BMI. Soft, non-tender. Bowel Sounds normal. Extremities - no edema, no calf tenderness. Laboratory Results - last 24 hr 08/14/19 08/14/19 08/14/19 06:40 06:40 06:40 WBC 11.0 H RBC 4.15 Hgb 12.3 Hct 35.2 L MCV 84.9 MCH 29.6 MCHC 34.8 RDW 13.4 Plt Count 257 MPV 8.3 Absolute Neuts (auto) 8.4 H Neutrophils % 76.4 Lymphocytes % 16.0 Monocytes % 7.2 Eosinophils % 0.3 Basophils % 0.1 Nucleated RBC % 0 Sodium 142 Potassium 4.6 Chloride 109 H Carbon Dioxide 29 Anion Gap 5 L BUN 14.3 Creatinine 0.9 Est GFR (CKD-EPI)AfAm 114.21 Est GFR (CKD-EPI)NonAf 98.54 Random Glucose 109 H Calcium 8.6 Total Bilirubin 0.4 0.4 Direct Bilirubin 0.2 AST 35 34 ALT 127 H 128 H Alkaline Phosphatase 81 80 Total Protein 6.4 6.3 L Albumin 2.8 L 2.9 L ASSESSMENT AND PLAN: 53 year old male with no significant PMH, presented with epigastric abdominal pain associated with nausea, found to have acute pancreatitis. 1. Acute Pancreatitis sec to Gallstones (passed CBD stone) MRI - shows extensive pancreatitis with devika-pancreatic edema, no necrosis or cyst/abscess; cholelithiasis, no choledocholithiasis or CBD dilatation. POD 1 s/p lap missy Clinically improving, tolerated regular diet LFTs improving GI/Sx following. Medically optimized for discharge home with Surgery follow up as out-patient. DC instructions as per Surgery.
--- NOTE | 2019-08-17 19:35 | PATH ---
Surgical Pathology Report Patient Name: MINDI GIPSON Med. Rec. #: [id number] /Age/Gender: 1965 (Age: 53) / M Account: [id number] Location: [facility] MED/SURG Taken: 08/13/2019 Received: 08/13/2019 Reported: 08/17/2019 Physicians: Sudhir Guaman MD Specimen(s) Received GALLBLADDER Clinical History Pancreatitis Final Diagnosis Gallbladder, laparoscopic cholecystectomy: Chronic FOCAL ACUTE Cholecystitis with cholelithiasis. One BENIGN periductal lymph node (0/1). Electronically Signed By Loraine Dominguez M.D. Gross Description Received in formalin, labeled "gallbladder," is a 7.4 x 2.6 x 1.8 cm. gallbladder with a 0.2 cm. in length portion of cystic duct attached. There is a 0.6 cm greatest dimension periductal lymph node present. The outer surface is gallegos-dorsey and varies from smooth to shaggy. The lumen contains green, tenacious bile as well as abundant brown, irregular to fragmented choleliths ranging from 0.1-0.9 cm in greatest dimension. The mucosa is green and focally eroded. The wall of the gallbladder averages 0.2 cm. in thickness. Manager Mail sections are submitted in one cassette. 08/14/2019 [facility]08/14/2019
== END 2019-08-14 14:00 | disposition home or self-care (01) | DRG 263 ==
LOC: FER 15:48 → J4W 18:35 → J7W 08-12 23:18
PROVIDERS: ADMIT Internal Medicine
PROC: 0FT44ZZ Resection of Gallbladder, Percutaneous Endoscopic Approach (ICD-10-PCS; principal; 2019-08-13 09:30)
DX: K80.00 Calculus of gallbladder with acute cholecystitis without obstruction (principal); K85.90 Acute pancreatitis without necrosis or infection, unspecified; D72.829 Elevated white blood cell count, unspecified; R16.0 Hepatomegaly, not elsewhere classified; K86.89 Other specified diseases of pancreas; E66.01 Morbid (severe) obesity due to excess calories; Z68.39 Body mass index [BMI] 39.0-39.9, adult; R10.13 Epigastric pain; R11.0 Nausea; Z71.3 Dietary counseling and surveillance
CPT/HCPCS: 36415; 74019-TC-FY; 74181-TC; 76705-TC; 80053; 80061; 80076; 80307; 81003; 81015; 82150; 82172; 82962; 82977; 83010; 83690; 83721; 83735; 83883; 84460; 84478; 85025; 85027; 88304-TC; 93005; 93010; 94760; 99285-25; J1644; J7030